=== PATIENT | male | born 1995 | race Caucasian/White ===

== ENCOUNTER 2021-05-23 14:00 | Emergency (ER) | payer SELFPAY ==
--- OUTSIDE RECORDS SUMMARY | 2021-05-23 14:08 | XMS REPORT | Continuity of Care Document ---
:1995 Author Organization [facility] t Address [address] [place] [address] Support Name Relationship Address Phone Nicolas Mother [address], [address] + [place] [address] NONE Unavailable [address]AR[address] BEE [phone],[address] [place] [address] ARTIE Unavailable [phone] [phone] [place] [address] NONE Unavailable [phone] [phone] [place] [address] NEUERBRG Unavailable [address] [place] [address] NONE Unavailable [address] [place] [address] AZEEM Unavailable [address] [phone] [place] [address] NONE Unavailable [address] [phone] [place] [address] Responsible Provider O [address] [id number] [place] [address] Legal Guardian O Unavailable Unavailable Ramin Valenzuela O [place] [address] Flash V [address] [id number] [place] [address] [place] [address] [place] [address] [id number] [place] [address] Care Team Providers Name Role Phone rjmuna Attending Clinician Unavailable Dave Attending Clinician [phone] Rachele Attending Clinician [phone] Kim Attending Clinician [phone] Elver Attending Clinician Unavailable Wilfredo BRUNO Attending Clinician Doctor Unassigned, Name Attending Clinician Unavailable Kyle MONTGOMERY Attending Clinician KYLE Attending Clinician Unavailable Reese Attending Clinician Unavailable Toshia Attending Clinician Unavailable Paul Attending Clinician [phone] Bhakti Abad Attending Clinician Unavailable Naun Krishna Attending Clinician Unavailable Manan Attending Clinician Unavailable Patricia Kerns Attending Clinician [phone] Pooja Attending Clinician Unavailable Rachele Attending Clinician Unavailable Clarita Attending Clinician Unavailable Shania Attending Clinician [phone] Zachariah Attending Clinician Unavailable Tomi Attending Clinician Unavailable Isabel Attending Clinician Unavailable Jennifer Attending Clinician Unavailable Marcus Attending Clinician [phone] Kerri Attending Clinician [phone] Sonido Attending Clinician Unavailable Avila Attending Clinician Unavailable Jaime Attending Clinician Unavailable Azeem Attending Clinician [phone] Alejandra Attending Clinician [phone] Ana Attending Clinician Unavailable Pennie Attending Clinician Unavailable Max Attending Clinician Unavailable Dhiraj Attending Clinician Unavailable Physician, Primary or Family Admitting Clinician Unavailrahul Acosta Unavailable [phone] Paul Unavailable [phone] Patricia Kerns Unavailable [phone] Bala Unavailable Unavailable Payers Payer Name Policy Type Policy Number Effective Date Expiration Date [place] Self Pay P [id number] 2018 00:00:00 Self Pay P [id number] 2018 00:00:00 2020 00:0 0:00 Problems Condition Condition Condition Status Onset Resolution Last Treating Co mments Source Name Details Category Date Date Treatment Clinician Date Acne Condition Active 2020-07-28 Paula Acosta 01-09 12:45:43 [facility] 00:00: ty 00 Health Syphilis Condition Active 2020-07-28 Antonio Acosta 06-22 12:45:43 [facility] 00:00: ty 00 Health Health Condition Active 2019-06-22 Paula Acosta care 06-22 11:09:29 [facility] maintenanc 00:00: ty e 00 Health BMI Condition Active 2019-06-22 Paula Acosta 31.0-31.9 06-22 11:09:29 Yuly Carrillo ni 00:00: ty 00 Health Hypertensi Condition Active 2020-07-28 Antonio Miller on 10-04 12:45:43 Sulema Commun i 00:00: ty 00 Health Tobacco Condition Active 2020-07-28 Hugo Kerns egacy use 09-01 12:45:43 Bengi [facility]i 00:00: Biber ty 00 Health SUBSTANCE Condition Active 2020-07-28 Luis F [facility] USE 08-16 12:45:43 [facility] DISORDER, 00:00: Biber ty OTHER/UNK, 00 Health EARLY REMISSION, SEV Cannabis Condition Active 2020-07-28 Kerns [facility] use, 08-16 12:45:43 [facility] unspecifie 00:00: Biber ty d with 00 Health unspecifie d cannabis-i nduced disorder Hypercalce Condition Active 2020-07-28 Antonio Acosta johann, 08-09 12:54:52 [facility] resolved 00:00: ty 00 Health Obesity Condition Active 2019-06-22 Paula Miller gacy 08-09 11:06:09 [facility] i 00:00: ty 00 Health Chronic Condition Active 2020-07-28 Paula Miller cough 08-09 12:45:43 [facility] Commun i 00:00: ty 00 Health Multiple Condition Active 2020-07-28 Paul, on CT L egacy pulmonary 06-30 12:45:43 Sulema scan in Co mmuni nodules 00:00: 2018 will ty 00 need Health follow-up to demonstra te resolutio n. Neurosyphi Condition Active 2020-07-28 Antonio Acosta lis 06-14 12:45:43 [facility] i 00:00: ty 00 Health HIV Condition Active 2017-062020-07-28 Paula Mckenna infection 07-31 12:45:43 Temo Commu ni 00:00: ty 00 Health No known No known Disease Unive rs active active ity of problems problems [facility] History of Past Illness Condition Condition Condition Status Onset Resolution Last Treating Co mments Source Name Details Category Date Date Treatment Clinician Date Drug Condition Inactiv 2019-06-22 2019-06-22 Antonio Acosta monitoring e 01-03 00:00:00 11:09:29 Yuly Co mmuni 00:00: ty 00 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 2018-2019-06-22 2019-06-22 Khris Acostamercedez drug e 7-24 00:00:00 11:09:29 [facility] i therapy 00:00: ty 00 Health Psychoacti Condition Inactiv 2018-2019-06-22 2019-06-22 Dave Antonio ve e 1 00:00:00 11:09:29 [facility] i substance 00:00: ty use 00 Health disorder Anxiety Condition Inactiv 2018-2019-06-22 2019-06-22 Khris Acostaacy disorder e 1 00:00:00 11:09:29 Yuly Comm uni 00:00: ty 00 Health Chest pain Condition Inactiv 2018-2019-06-22 2019-06-22 Antonio Acosta e 06-14 00:00:00 11:09:29 [facility] Commun i 00:00: ty 00 Health Lymphocyto Condition Inactiv 2018-2019-06-22 2019-06-22 Antonio Acosta sis e 06-14 00:00:00 11:09:29 [facility] Commun i 00:00: ty 00 Health Adjustment Condition Inactiv 2018-2019-06-22 2019-06-22 Khris Acostamercedez disorder e 06-14 00:00:00 11:09:29 Yuly Comm uni with 00:00: ty anxious 00 Health mood Pre-proced Condition Inactiv 2017-2019-06-22 2019-06-22 Khris Acostamercedez ural e 2-18 00:00:00 11:09:29 Y[facility] Commun i laboratory 00:00: ty examinatio 00 Health n Allergies, Adverse Reactions, Alerts Allergy Allergy Status Severity Reaction(s) Onset Inactive Treating Comm ents Source Name Type Date Date Clinician No Known DA Active U 2017-06 [facility]ergie -17 Clear s 00:00: Gillespie 00 [facility] No Known DA Active U 2017-06 [facility] Allergie -17 Clear s 00:00: Gillespie 00 [facility] NO KNOWN Drug Active Univers ALLERGIE Class ity of S [facility] Social History Social Habit Start Date Stop Date Quantity Comments Source Sex Assigned At Universit y of [facility] Exposure to Not sure University of SARS-CoV-2 (event) [facility] social history 2020-07-28 2020-07-28 reviewed today [facility] reviewed E&M 12:43:47 12:43:47 Health social history E&M 2020-07-28 2020-07-28 Dating. Raised by [facility] 12:43:47 12:43:47 grandmother. [facility] when he was 5. Born in [place]. City: [place] . State: [place]. Lived in [place] with mother.Not employed. Unemployed. Highest education level: 11th . 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 [employer] at : Male. Sexual orientation: Max. Gender identity: Male. Gender of partner(s): Male. Age of first sexual intercourse: 15. Sexually Active: Yes. sex with men mostly, females occasionally. usually top, condoms usually. has a main partner. time of call 2020-07-04 2020-07-04 07/04/2020 4:44 [facility] 16:43:47 16:43:47 PM Health albumin, serum 2020-03-20 2020-03-20 4.5 g/dL [facility] 14:04:00 14:04:00 Health drug use 2019-06-22 2019-06-22 Currently [facility] ty 10:43:59 10:43:59 Health alcohol use 2019-06-22 2019-06-22 Currently [facility] ity 10:43:59 10:43:59 Health passive cigarette 2019-06-22 2019-06-22 No [facility] smoke exposure 10:43:59 10:43:59 Health sexual orientation 2019-06-22 2019-06-22 Max [facility] 10:43:59 10:43:59 Health PHQ2 Questionairre 2019-06-22 2019-06-22 [facility] Score 10:43:59 10:43:59 Health is there any chance 2019-04-11 2019-04-11 No [facility] that you could be 16:23:08 16:23:08 Health ? alcohol use, 2018-10-04 2018-10-04 few times per [facility]munity frequency 11:03:57 11:03:57 week Health smoking, advice to 2018-09-06 2018-09-06 Yes [facility] quit 15:40:41 15:40:41 Health home/family 2018-09-06 2018-09-06 Lived in [place] [employer] situation, 15:40:41 15:40:41 with mother. Now Health assessment staying with a friend. Occupation #1 2018-07-19 2018-07-19 Unemployed [employer] 15:16:32 15:16:32 Health drug use, illicit, 2018-07-19 2018-07-19 marijuana [facility] drug of choice 15:16:32 15:16:32 Health drug use, illicit, 2018-07-19 2018-07-19 daily [facility] [employer] frequency 15:16:32 15:16:32 Health current cigarette 2018-07-19 2018-07-19 1 pack [facility] packs per day 15:16:32 15:16:32 Health family support 2018-07-19 2018-07-19 Raised by [employer] 15:16:32 15:16:32 grandmother. [facility] when he was 5. social history - 2018-06-14 2018-06-14 sex with men [facility] sexual practice 08:02:44 08:02:44 mostly, females Heal th occasionally. usually top, condoms usually. has a main partner. sex at 2018-06-14 2018-06-14 Male [employer] Commu nity 08:02:44 08:02:44 Health cigarettes, number 2018-06-14 2018-06-14 [employer] [facility] smoked per day 08:02:44 08:02:44 Health Smoking Status Start Date Stop Date Source Unknown if ever smoked [facility] Never smoked tobacco [employer] (finding) Smokes tobacco daily 2018-10-04 11:03:57 [facility] [employer] (finding) Medications Ordered Filled Start Stop Current Ordering Indication Dosage Frequency Signature Comments Components Source Medication Medication Date Date Medication? Clinician (SIG) Name Name penicillin 2020-2020- No 500mg 500 mg, Un brandon v potassium 06-17 Oral, ity of (PEN-VEE K) 22:30: 21:48 [place]CE[place] 1 [place] 500 00 :00 dose, Tue Medi kendra mg 06/17/20 at Branch 1630, GAMALIEL
Re ason for Anti-Infec tive: Documented Infection< br>Documen riccardo Infection Site: HEENT
D uration of Therapy: 7 days HYDROcodone 2020- No 1{tbl} 1 tablet, Univers -acetaminop 06-17 Oral, ONCE i ty of hen (NORCO) 22:30: 21:34 NOW, 1 David as 10-325 mg 00 :00 dose, Tue Medic al tablet 1 06/17/20 at Branch tablet 1630, GAMALIEL ketorolac 2020- No 60mg 60 mg, Unive rs (TORADOL) 06-17 Intramuscu ity of injection 22:30: 21:33 lar, ONCE, [place] 60 mg 00 :00 1 dose, Medical 06/17/20 Branch at 1630, GAMALIEL
Fa culty member approving Restricted medication : EMERGENCY ROOM, acetaminoph Yes [id number] 1{tbl} Take 1 Un brandon en-codeine -05 tablet by ity of (TYLENOL-CO 00:00: mouth [place] DEINE #3) 00 every 4 Medical 300-30 mg (four) Branch tablet hours as needed for Pain (scale 7-10). Indication s: acute pain penicillin 2020- No [id number] 500mg Take 2 Univers v potassium 06-17 tablets by i ty of 250 mg 00:00: 05:59 mouth 4 [place] tablet 00 :00 (four) Medical times Branch daily for 7 days. LORazepam 2019-06 No .5mg 0.5 mg, Univ ers (ATIVAN) 0- 10-06 Slow IV ity of injection 02:15: 01:35 Push, [place] 0.5 mg 00 :00 ONCE, 1 Medical dose, [facility] 03/17/20 at 2115, STAT ketorolac 2019-06- No 30mg 30 mg, Unive rs (TORADOL) 0-06 10-06 Slow IV ity of injection 02:15: 01:35 Push, [place] 30 mg 00 :00 ONCE, 1 Medical dose, [facility] 03/17/20 at 2115, Routine
faculty member approving Restricted medication : ALLAN WRIGHT lactated 2019-06- No 1000mL at 999 Univ ers ringers IV 0-06 10-06 mL/hr, ity of infusion 02:15: 02:35 1,000 mL, David as 1,000 mL 00 :00 Intravenou Medic al s, ONCE, 1 Branch dose, 03/17/20 at 2115, Routine ibuprofen 2019-06 Yes [id number] 800mg Take 1 Univers 800 mg 0-05 tablet by ity of tablet 00:00: mouth [place] 00 every 8 Medical (eight) Branch hours as needed for Pain (scale 4-6). cyclobenzap 2019-06 Yes [id number] 5mg Take 1 Univers rine 5 mg 0-05 tablet by ity o f tablet 00:00: mouth 2 [place] 00 (two) Medical times Branch daily. ibuprofen 2019-06 Yes [id number] 800mg Take 1 Univers 800 mg 0-05 tablet by ity of tablet 00:00: mouth [place] 00 every 8 Medical (eight) Branch hours as needed for Pain (scale 4-6). cyclobenzap 2019-06 Yes [id number] 5mg Take 1 Univers rine 5 mg 0-05 tablet by ity o f tablet 00:00: mouth 2 [place] 00 (two) Medical times Branch daily. ibuprofen 2019-06 Yes [id number] 800mg Take 1 Univers 800 mg 0-05 tablet by ity of tablet 00:00: mouth [place] 00 every 8 Medical (eight) Branch hours as needed for Pain (scale 4-6). cyclobenzap 2019-06 Yes [id number] 5mg Take 1 Univers rine 5 mg 0-05 tablet by ity o f tablet 00:00: mouth 2 [place] 00 (two) Medical times Branch daily. ACNE 2020- No Yuly Use once a [facility]ega cy FOAMING 01-09 day Communi WASH 00:00: 00:00 ty (BENZOYL 00 :00 Health PEROXIDE) 10 % LIQD (DOXYCYCLIN 2020- No Yuly 1{Capsu 2xD 1 by mouth [facility] E HYCLATE) 01-09 le} twice a Com leonardo 100 MG CAPS 00:00: 00:00 day x 7 ty 00 :00 days Health BIKTARVY Yes Yuly 1{Table 1xD TAKE ONE [facility] (BICTEGRAVI 6-17 Dave t} TABLET BY Ashli cross RRadEMTRICITA 00:00: MOUTH ty B-TENOFOV) 00 DAILY Health 50-200-25 MG TABS (HYDROCHLOR Yes Yuly 1{Capsu 1xD TAKE ONE [facility] OTHIAZIDE) 4-17 Dave wagner} CAPSULE BY Ashli ommuni 12.5 MG 00:00: MOUTH ONCE ty CAPS 00 DAILY Health DESCOVY 2019- No 1{Table 1xD 1 tab by Paula beachjana (EMTRICITAB 06-14 t} mouth Commun i INE-TENOFOV 00:00: 00:00 daily ty IR AF) 00 :00 Health 200-25 MG TABS ISENTRESS 2019- No 1{Table 2xD one tablet [facility] (RALTEGRAVI 06-14 t} by mouth Com leonardo R 00:00: 00:00 twice ty POTASSIUM) 00 :00 daily Health 400 MG TABS Immunizations Ordered Immunization Filled Immunization Date Status Commen ts Source Name Name Pneumovax 23 IM/SQ 2019-06-22 Completed [facility] [id number] 11:40:00 Health Fluzone Quadrivalent 2019-06-22 Completed [facility] IM PF 0.5 ML [facility] 11:36:00 Health [id number] pneumped1 2018-08-09 Completed [facility] ty 10:20:41 Health flu vax 2018-06-26 Completed [facility] ty 12:21:17 Health Vital Signs Vital Name Observation Time Observation Value Comments Source Systolic blood 2020-06-17 21:27:45 153 mm[Hg] [facility] Diastolic blood 2020-06-17 21:27:45 88 mm[Hg] [facility] [place] Heart rate 2020-06-17 21:27:45 80 /min [facility] Respiratory rate 2020-06-17 21:27:45 17 /min [facility] Oxygen saturation in 2020-06-17 21:27:45 100 /min [facility] Arterial blood by [facility] Pulse oximetry Branch Body temperature 2020-06-17 19:12:00 37 Stephanie [facility] Body height 2020-06-17 19:12:[address] [facility] Body weight 2020-06-17 19:12:00 68.04 kg [facility] BMI 2020-06-17 19:12:00 24.21 kg/m2 [facility] Systolic blood 2020-03-18 04:43:52 118 mm[Hg] Univer sity of pressure [facility] Diastolic blood 2020-03-18 04:43:52 76 mm[Hg] Unive rsity of pressure [facility] Heart rate 2020-03-18 04:43:52 81 /min [facility] Respiratory rate 2020-03-18 04:43:52 18 /min [facility] Oxygen saturation in 2020-03-18 04:43:52 96 /min [facility] of Arterial blood by [place] [facility] kendra Pulse oximetry Branch Body temperature 2020-03-18 02:55:00 36.67 Stephanie [facility] Body weight 2020-03-18 00:56:11 77.111 kg [facility] BMI 2020-03-18 00:56:11 26.63 kg/m2 [facility] Body height 2020-03-18 00:55:00 170.2 cm [facility] Systolic blood 2020-03-18 04:43:52 118 mm[Hg] Univer sity of pressure [facility] Diastolic blood 2020-03-18 04:43:52 76 mm[Hg] Unive rsity of pressure [facility] Heart rate 2020-03-18 04:43:52 81 /min [facility] Respiratory rate 2020-03-18 04:43:52 18 /min [facility] Oxygen saturation in 2020-03-18 04:43:52 96 /min [facility] of Arterial blood by [place] [facility] kendra Pulse oximetry Branch Body temperature 2020-03-18 02:55:00 36.67 Stephanie [facility] Body weight 2020-03-18 00:56:11 77.111 kg [facility] BMI 2020-03-18 00:56:11 26.63 kg/m2 [facility] Body height 2020-03-18 00:55:00 170.2 cm [facility] oxygen saturation, 2019-06-22 10:43:59 97 /min [facility] oximetry Health blood pressure, 2019-06-22 10:43:59 75 mm[Hg] Leg[facility] diastolic Health blood pressure, 2019-06-22 10:43:59 148 mm[Hg] Leg[facility] systolic Health respiratory rate E&M 2019-06-22 10:43:59 14 /[facility] rate 2019-06-22 10:43:59 91 /min [facility] Health temperature E&M 2019-06-22 10:43:59 98.9 [degF] [facility] weight E&M 2019-06-22 10:43:59 195 [lb_av] [facility] Health weight in kilograms 2019-06-22 10:43:59 88.64 kg L [facility] E& Health height in 2019-06-22 10:43:59 167.64 cm [facility] centimeters E&M Health temperature site 2019-06-22 10:43:59 oral [facility] Health pulse rate 2019-04-11 16:23:08 99 /min [facility] Health blood pressure, 2019-04-11 16:23:08 85 mm[Hg] Leg[facility] diastolic Health blood pressure, 2019-04-11 16:23:08 132 mm[Hg] [facility] systolic Health weight E&M 2019-04-11 16:23:08 175 [lb_av] [facility] Health weight in kilograms 2019-04-11 16:23:08 79.55 kg L [facility] E& Health oxygen saturation, 2019-04-11 16:23:08 98 /min [facility] oximetry Health temperature E&M 2019-04-11 16:23:08 98.0 [degF] Leg[facility] Health height in 2019-04-11 16:23:08 167.64 cm [facility] centimeters E&M Health oxygen saturation, 2018-10-04 11:03:57 97 /min [facility] oximetry Health blood pressure, 2018-10-04 11:03:57 82 mm[Hg] Leg[facility] diastolic Health blood pressure, 2018-10-04 11:03:57 144 mm[Hg] Leg[facility] systolic Health respiratory rate E&M 2018-10-04 11:03:57 12 /min [facility] Health pulse rate 2018-10-04 11:03:57 82 /min [facility] Health temperature E&M 2018-10-04 11:03:57 98.2 [degF] Leg[facility] Health weight E&M 2018-10-04 11:03:57 186.50 [lb_av] [facility] weight in kilograms 2018-10-04 11:03:57 84.77 kg L [facility] E& Health height in 2018-10-04 11:03:57 167.64 cm [facility] C ommunity centimeters E&M Health temperature site 2018-10-04 11:03:57 oral [facility] Health blood pressure, 2018-09-06 15:40:41 80 mm[Hg] [facility] diastolic Health blood pressure, 2018-09-06 15:40:41 155 mm[Hg] [facility] systolic Health pulse rate 2018-09-06 15:40:41 73 /min [facility] Health weight E&M 2018-09-06 15:40:41 178.60 [lb_av] [facility] weight in kilograms 2018-09-06 15:40:41 81.18 kg L [facility] E&M Health height in 2018-09-06 15:40:41 167.64 cm [facility] ommunity centimeters E&M Health height in 2018-08-16 16:00:00 167.64 cm [facility] om[facility]ity centimeters E&M Health weight E&M 2018-08-16 16:00:00 188 [lb_av] [facility] Health weight in kilograms 2018-08-16 16:00:00 85.45 kg L [facility] E& Health pulse rate 2018-08-16 16:00:00 96 /min [facility] Health blood pressure, 2018-08-16 16:00:00 78 mm[Hg] [facility] diastolic Health blood pressure, 2018-08-16 16:00:00 146 mm[Hg] [facility] systolic Health blood pressure, 2018-08-09 10:20:41 80 mm[Hg] [facility] diastolic Health blood pressure, 2018-08-09 10:20:41 132 mm[Hg] [facility] systolic Health pulse rate 2018-08-09 10:20:41 115 /min [facility] oxygen saturation, 2018-08-09 10:20:41 98 /min [facility] oximetry Health temperature E&M 2018-08-09 10:20:41 98.1 [degF] [facility] rate E&M 2018-08-09 10:20:41 13 /min [facility] Health weight E&M 2018-08-09 10:20:41 188.38 [lb_av] [facility] Health weight in kilograms 2018-08-09 10:20:41 85.63 kg L [facility] E&M Health height in 2018-08-09 10:20:41 167.64 cm [facility] blood pressure, 2018-07-19 15:16:32 88 mm[Hg] [facility] diastolic Health blood pressure, 2018-07-19 15:16:32 147 mm[Hg] [facility] systolic Health pulse rate 2018-07-19 15:16:32 68 /min [facility] Health weight E&M 2018-07-19 15:16:32 183.25 [lb_av] [facility] Health weight in kilograms 2018-07-19 15:16:32 83.30 kg L [facility] E& Health height in 2018-07-19 15:16:32 167.64 cm [facility] centimeters E&M Health blood pressure, 2018-06-26 12:21:17 72 mm[Hg] [facility] diastolic Health blood pressure, 2018-06-26 12:21:17 123 mm[Hg] Leg[facility] systolic Health oxygen saturation, 2018-06-26 12:21:17 98 /min [facility] oximetry Health temperature E&M 2018-06-26 12:21:17 98.3 [degF] [facility] Health pulse rate 2018-06-26 12:21:17 78 /min [facility] weight E&M 2018-06-26 12:21:17 173 [lb_av] [facility] weight in kilograms 2018-06-26 12:21:17 78.64 kg L [facility] E& Health height in 2018-06-26 12:21:17 167.64 cm [facility] centimeters E&M Health temperature site 2018-06-26 12:21:17 oral Lega cy [facility] Health oxygen saturation, 2018-06-14 08:02:44 95 /min Le caren [facility] oximetry Health blood pressure, 2018-06-14 08:02:44 73 mm[Hg] [facility] diastolic Health blood pressure, 2018-06-14 08:02:44 151 mm[Hg] [facility] systolic Health pulse rate 2018-06-14 08:02:44 79 /min [facility] Health temperature E&M 2018-06-14 08:02:44 99.0 [degF] [facility] height in 2018-06-14 08:02:44 167.64 cm [facility] centimeters E&M Health weight E&M 2018-06-14 08:02:44 174 [lb_av] [facility] weight in kilograms 2018-06-14 08:02:44 79.09 kg L [facility] E&M Health temperature site 2018-06-14 08:02:44 oral [facility] Procedures Procedure Date / Time Performing Clinician Source Performed Behavioral Health - 2020-07-28 12:52:06 [facility] AUTHORIZATION FOR RELEASE 2020-04-27 06:01:00 Doctor Unassigned, [facility] Branch Primary Care [facility]W Meeting 2020-04-16 16:28:37 Boubacar Phan [facility] W Other Health XR CHEST 2 VW 2020-03-18 01:37:00 Allan Wright [facility] XR SHOULDER 2+ VW LEFT 2020-03-18 01:37:00 Allan Wright [facility] CT CERVICAL SPINE WO 2020-03-18 01:20:11 Allan Wright [facility] CONTRAST [facility] CT HEAD WO CONTRAST 2020-03-18 01:20:11 Allan Wright [facility] HEPATIC FUNCTION PANEL 2020-03-18 01:17:00 Allan Wright [facility] ([id number]) (ALB,T.PRO,BILI Medical Branch T,BU/BC,ALT,AST,ALK PHOS) BASIC METABOLIC PANEL 2020-03-18 01:17:00 Kyle [facility] (NA, K, CL, CO2, GLUCOSE, Medica l Branch BUN, CREATININE, CA) CBC WITH DIFF 2020-03-18 01:17:00 Kyle [facility] EXTRA TUBE LT. BLUE 2020-03-18 01:17:00 Allan Wright [facility] Addl Vx - Ix admin via ID 2019-06-22 11:36:37 Yuly Acosta [facility] IM or jet injects without Health counseling by physician Pneumovax 23 Injection 2019-06-22 11:36:37 Yuly Acosta [facility] Injectable 25 MCG/0.5ML Health First Vx - Ix admin via 2019-06-22 11:36:37 Yuly Acosta [facility] ID IM or jet injects Health without counseling by physician Fluzone Quadrivalent IM 2019-06-22 11:34:08 Yuly Acosta [facility] Prefilled Syringe 0.5 mL Health (PF) Vaccines Ordered - Print 2019-06-22 11:03:56 Yuly Acosta [facility] Consent/Declination Forms Health Primary Care SLW Meeting 2019-04-12 17:12:15 Boubacar Phan [facility] Other Health Primary Care Service 2019-04-12 17:11:53 Boubacar Phan [facility] Linkage Health Primary Care SLW Meeting 2019-04-12 17:00:10 Boubacar Phan [facility] Other Health Prescription Assistance 2019-04-11 16:47:51 Sulema Miller [facility] (HIV - URGENT) Health Vaccines Ordered - Print 2019-04-11 16:41:07 Sulema Miller [facility] Consent/Declination Forms Health Primary Care SLW Meeting 2019-03-15 15:29:48 Abiel Mahan [facility] Other CM Health Primary Care Medical Case 2019-03-15 08:37:22 Radha Ovalle [facility] Management Health Primary Care Medical Case 2019-02-20 17:03:33 Radha Ovalle [facility] Health Outreach - Face to Face 2018-11-29 11:18:08 Demi Longorianaun [facility] Primary Care [facility]W Meeting 2018-11-28 12:26:29 Abiel Mahan Leg messiy [facility] W Other Health Primary Care Service 2018-11-28 12:26:29 Abiel Mahan Legmercedez [facility] Health Primary Care Medical Case 2018-11-20 10:13:04 Nighat Cartwright [facility] Primary Care SLW Meeting 2018-11-17 13:19:12 Abiel Mahan Leg messiy [facility] W Other Health Outreach - Phone contact 2018-10-23 11:30:02 Vanessa Santana mercedez [facility] with (or on behalf of) Health Client Primary Care SLW Meeting 2018-10-19 15:38:59 Abiel Mahan Leg messiy [facility] W Other Health Primary Care Service 2018-10-19 15:38:59 Mahan, Abiel Legmercedez [facility] Health Primary Care Service 2018-10-16 15:50:57 Mahan, Abiel Legmercedez [facility] Health Primary Care SLW Meeting 2018-10-13 14:51:08 Abiel Mahan Leg messiy [facility] W Other Health Primary Care Service 2018-10-13 12:00:57 Mahan, Abiel Legmercedez [facility] Health Primary Care Service 2018-10-06 12:45:23 MahanAbiel caldwell Legmercedez [facility] Health Prescription Assistance 2018-10-04 11:33:51 Sulema Millernaun [facility] (HIV - URGENT) Health Primary Care Service 2018-09-19 14:55:15 Mahan, Abiel Legmercedez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 normal in height and in normal alignment. Reversalof the normal cervical lordosis is noted. No facet fracture or subluxationis present. The craniocervical junction is intact. The prevertebral softtissues are unremarkable.IMPRESSIONNo acute intracranial abnormalityNo cervical fracture or traumatic malalignmentUnSt. [facility] with Nemydwsssyxr0557-22-25 01:22:00 Test Item Value Reference Range Interpretation Comments WBC (test code = See_Comment [Automated 9590-2) message] The sy stem which generated this result transmitted reference range : 4.20 - 10.70 10*3/?L. The reference range was not used to interpret this result as normal/abnormal . RBC (test code = See_Comment H [Automated 139-8) message] The sy stem which generated this result transmitted reference range : 4.26 - 5.52 10*6/?L. The reference range was not used to interpret this result as normal/abnormal . HGB (test code = 16.0 g/dL 12.2-16.4 718-7) HCT (test code = 45.2 % 38.4-49.3 4544-3) MCV (test code = 81.4 fL 81.7-95.6 L 787-2) MCH (test code = 28.8 pg 26.1-32.7 785-6) MCHC (test code = 35.4 g/dL 31.2-35 H 786-4) RDW-SD (test code = 38.3 fL 38.5-51.6 L 80513-3) RDW-CV (test code = 13.0 % 12.1-15.4 788-0) PLT (test code = See_Comment [Automated 777-3) message] The sy stem which generated this result transmitted reference range : 150 - 328 10*3/ ?L. The reference r yris was not used to interpret this result as normal/abnormal . MPV (test code = 8.5 fL 9.8-13 L 76685-3) NRBC/100 WBC (test See_Comment [Automat ed code = 5041240363) message] The system which generated this result transmitted reference range : 0.0 - 10.0 /100 WBCs. The refer ence range was not u sed to interpret th is result as normal/abnormal . NRBC x10^3 (test code <0.01 See_Comment [Auto mated = [id number]) message] The s ystem which generated this result transmitted reference range : 10*3/?L. The reference range was not used to interpret this result as normal/abnormal . GRAN MAT (NEUT) % 53.6 % (test code = 770-8) IMM GRAN % (test code 0.20 % = 0908434089) LYMPH % (test code = 36.5 % 736-9) MONO % (test code = 8.6 % 5905-5) EOS % (test code = 0.7 % 713-8) BASO % (test code = 0.4 % 706-2) GRAN MAT x10^3(ANC) 4.50 10*3/uL 1.99-6.95 (test code = 3782216715) IMM GRAN x10^3 (test <0.03 0-0.06 code = 9300901030) LYMPH x10^3 (test code 3.06 10*3/uL 1.09-3.23 = 731-0) MONO x10^3 (test code 0.72 10*3/uL 0.36-1.02 = 742-7) EOS x10^3 (test code = 0.06 10*3/uL 0.06-0.53 711-2) BASO x10^3 (test code 0.03 10*3/uL 0.01-0.09 = 704-7) Lab Interpretation Abnormal (test code = 07280-1) [facility] Centerhepatitis C antibody, [id number] 10:40:00 Test Item Value Reference Range Interpretation Comments hepatitis C antibody, 0.1 (unknown unit) 0.0-0.9 serum (test code = 5199-5) [facility] PointTreponema pallidum antibodies, by particle agglutination 2019-10-29 10:40:00 Test Item Value Reference Range Interpretation Comments Treponema pallidum antibodies, by Reactive Non Reactive A particle agglutination (test code = 67235-9) [facility] Pointrad plasma reagin antibody, [id number] 10:40:00 Test Item Value Reference Range Interpretation Comments rapid plasma reagin 1:1 See_Comment H [Automa riccardo message] The antibody, serum (test system which generated code = 5291-0) this result t ransmitted reference range : NonRea<1:1. The reference range was not u sed to interpret this result as normal/abnormal . [facility] PointNeisseria gonorrhoeae DNA [id number] 10:40:00 Test Item Value Reference Range Interpretation Comments Neisseria gonorrhoeae DNA probe Negative Negative (test code = 39515-8) [facility] Pointchlamydia DNA [id number] 10:40:00 Test Item Value Reference Range Interpretation Comments chlamydia DNA probe (test code = Negative Negative 62064-8) [facility] Pointalanine aminotransferase (SGPT), [id number] 10:40:00 Test Item Value Reference Range Interpretation Comments alanine aminotransferase (SGPT), serum 11 1/L 0-44 (test code = 1742-6) [facility] Pointaspartate aminotransferase (SGOT), [id number] 10:40:00 Test Item Value Reference Range Interpretation Comments aspartate aminotransferase (SGOT), 15 1/L 0-40 serum (test code = 1920-8) [facility] Pointalkaline phosphatase, [id number] 10:40:00 Test Item Value Reference Range Interpretation Comments alkaline phosphatase, serum (test code 70 1/L 39-117 = 1783-0) [facility] Pointbilirubin, serum, [id number] 10:40:00 Test Item Value Reference Range Interpretation Comments bilirubin, serum, total (test code 0.3 mg/dL 0.0-1.2 = 1975-2) [facility] Pointalbumin/globulin ratio, [id number] 10:40:00 Test Item Value Reference Range Interpretation Comments albumin/globulin ratio, 1.9 (unknown unit) 1.2-2.2 serum (test code = 1759-0) [facility] Pointglobulin, [id number] 10:40:00 Test Item Value Reference Range Interpretation Comments globulin, serum (test code 2.5 (unknown unit) 1.5-4.5 = 2336-6) [facility] Pointalbumin, [id number] 10:40:00 Test Item Value Reference Range Interpretation Comments albumin, serum (test code = 1751-7) 4.7 g/dL 4.1-5.2 [facility] Health[facility], total, [id number] 10:40:00 Test Item Value Reference Range Interpretation Comments protein, total, serum (test code = 7.2 g/dL 6.0-8.5 2885-2) [facility] Pointcalcium, [id number] 10:40:00 Test Item Value Reference Range Interpretation Comments calcium, serum (test code = 1999-) 9.8 mg/dL 8.7-10.2 [facility] Pointcarbon dioxide, venous [id number] 10:40:00 Test Item Value Reference Range Interpretation Comments carbon dioxide, venous blood (test 23 mmol/L code = 2027-1) [facility] Pointchloride, [id number] 10:40:00 Test Item Value Reference Range Interpretation Comments chloride, serum (test code = 105 mmol/L 96-106 5-0) [facility] Pointpotassium, [id number] 10:40:00 Test Item Value Reference Range Interpretation Comments potassium, serum (test code = 4.1 mmol/L 3.5-5.2 2823-3) [facility] Pointsodium, [id number] 10:40:00 Test Item Value Reference Range Interpretation Comments sodium, serum (test code = 2951-2) 141 mmol/L 134-144 [facility] Pointurea nitrogen/creatinine ratio, [id number] 10:40:00 Test Item Value Reference Range Interpretation Comments urea nitrogen/creatinine 8 (unknown unit) 9-20 L ratio, serum (test code = 3097-3) [facility] HealtheGFR if [id number] 10:40:00 Test Item Value Reference Range Interpretation Comments eGFR if 124 mL/min/{1.73 m2} >59 (test code = 61570-1) [facility] PointEstimated Glomerular Filtration Rate (calc)2019-10-29 10:40:00 Test Item Value Reference Range Interpretation Comments Estimated Glomerular 108 mL/min/{1.73 m2} >59 Filtration Rate (calc) (test code = 90249-4) [facility] Pointcreatinine, [id number] 10:40:00 Test Item Value Reference Range Interpretation Comments creatinine, serum (test code = 0.99 mg/dL 0.76-1.27 2160-0) [facility] Healthurea nitrogen, [id number] 10:40:00 Test Item Value Reference Range Interpretation Comments urea nitrogen, blood (test code = 8 mg/dL 6-20 3094-0) [facility] Pointblood glucose, [id number] 10:40:00 Test Item Value Reference Range Interpretation Comments blood glucose, random (test code = 99 mg/dL 65-99 2339-0) [facility] Pointimmature granulocytes, percentage of total cells, blood 2019-10-29 10:40:00 Test Item Value Reference Range Interpretation Comments immature granulocytes, percentage of 0 % total cells, blood (test code = 97387-3) [facility] Pointbasophil count, [id number] 10:40:00 Test Item Value Reference Range Interpretation Comments basophil count, absolute (test 0.0 x10E3/uL 0.0-0.2 code = 29093-5) [facility] PointEosinophil Absolute [id number] 10:40:00 Test Item Value Reference Range Interpretation Comments Eosinophil Absolute Count (test 0.1 X10E3/UL 0.0-0.4 code = 21033-1) [facility] Pointmonocyte count, blood, [id number] 10:40:00 Test Item Value Reference Range Interpretation Comments monocyte count, blood, automated 0.5 X10E3/UL 0.1-0.9 (test code = 742-7) [facility] Pointlymphocyte count, blood, [id number] 10:40:00 Test Item Value Reference Range Interpretation Comments lymphocyte count, blood, 2.0 X10E3/UL 0.7-3.1 automated (test code = 731-0) [facility] PointAbsolute [id number] 10:40:00 Test Item Value Reference Range Interpretation Comments Absolute Neutrophils (test code 3.8 X10E3/UL 1.4-7.0 = 64903-0) [facility] Pointbasophils as percent of blood [id number] 10:40:00 Test Item Value Reference Range Interpretation Comments basophils as percent of blood 0 % leukocytes (test code = 707-0) [facility] Pointeosinophils as percent of blood yqvwudguwb9636-03-02 10:40:00 Test Item Value Reference Range Interpretation Comments eosinophils as percent of blood 1 % leukocytes (test code = 713-8) [facility] Healthmonocytes as percent of blood [id number] 10:40:00 Test Item Value Reference Range Interpretation Comments monocytes as percent of blood 7 % leukocytes (test code = 5905-5) [facility] Pointlymphocytes as percent of blood [id number] 10:40:00 Test Item Value Reference Range Interpretation Comments lymphocytes as percent of blood 31 % leukocytes (test code = 736-9) [facility] Pointneutrophils as percent of blood gjaoynzqsv6422-00-49 10:40:00 Test Item Value Reference Range Interpretation Comments neutrophils as percent of blood 61 % leukocytes (test code = 770-8) [facility] Pointplatelet [id number] 10:40:00 Test Item Value Reference Range Interpretation Comments platelet count (test code = 269 X10E3/UL 150-450 777-3) [facility] Pointred blood cell distribution [id number] 10:40:00 Test Item Value Reference Range Interpretation Comments red blood cell distribution width 14.0 % 11.6-15.4 (test code = 788-0) [facility] corpuscular hemoglobin concentration, [id number] 10:40:00 Test Item Value Reference Range Interpretation Comments mean corpuscular hemoglobin 33.5 G/DL 31.5-35.7 concentration, RBC (test code = 786-4) [facility] corpuscular hemoglobin, [id number] 10:40:00 Test Item Value Reference Range Interpretation Comments mean corpuscular hemoglobin, RBC 29.0 pg 26.6-33.0 (test code = 785-6) [facility] corpuscular volume, [id number] 10:40:00 Test Item Value Reference Range Interpretation Comments mean corpuscular volume, RBC (test code 87 fL 79-97 = 787-2) [facility] Pointhematocrit, [id number] 10:40:00 Test Item Value Reference Range Interpretation Comments hematocrit, blood (test code = 4544-3) 44.8 % 37.5-51.0 [facility] Pointhemoglobin, [id number] 10:40:00 Test Item Value Reference Range Interpretation Comments hemoglobin, blood (test code = 15.0 g/dL 13.0-17.7 718-7) [facility] Pointerythrocyte (RBC) [id number] 10:40:00 Test Item Value Reference Range Interpretation Comments erythrocyte (RBC) count (test 5.18 X10E6/UL 4.14-5.80 code = 789-8) [facility] Pointleukocyte count, [id number] 10:40:00 Test Item Value Reference Range Interpretation Comments leukocyte count, blood (test 6.3 X10E3/UL 3.4-10.8 code = 6690-2) [facility] PointT-helper cells (CD4) as percent of blood lymphocytes 2019-10-29 10:40:00 Test Item Value Reference Range Interpretation Comments T-helper cells (CD4) as percent of 26.9 % 30.8-58.5 L blood lymphocytes (test code = 8123-2) [facility] PointT-helper cells (CD4) [id number] 10:40:00 Test Item Value Reference Range Interpretation Comments T-helper cells (CD4) count (test code 538 /UL 359-1519 = 05063-8) [facility] Pointhepatitis B surface [id number] 10:40:00 Test Item Value Reference Range Interpretation Comments hepatitis B surface antigen (test Negative Negative code = 79) [facility] PointHIV-1RNA, serum, by PCR, [id number] 10:40:00 Test Item Value Reference Range Interpretation Comments HIV-1RNA, serum, by PCR, <20 copies/mL quantitative (test code = 96995) [facility] PointCD4/CD8 [id number] 10:40:00 Test Item Value Reference Range Interpretation Comments CD4/CD8 ratio (test code 0.50 (unknown unit) 0.92-3.72 L = 86879) [facility] PointT-suppressor cells (CD8) as percent of blood lymphocytes 2019-10-29 10:40:00 Test Item Value Reference Range Interpretation Comments T-suppressor cells (CD8) as percent of 53.5 % 12.0-35.5 H blood lymphocytes (test code = 3517) [facility] Pointabsolute [id number] 10:40:00 Test Item Value Reference Range Interpretation Comments absolute CD8 (test code = 1070 (unknown unit) 109-897 H 26133) [facility] PointCHLAMYDIA GC DNA BY [id number] 12:08:00 Test Item Value Reference Range Interpretation Comments C. TRACHOMATIS DNA BY Negative Negative PCR (test code = CHLAMTDNA) N. GONORRHOEAE DNA BY Negative Negative Perfor med At: ST PCR (test code = [facility] NGONORDNA) [id number] [facility], [place] [id number] celio Davalos MD Ph:[phone] RAPID PLASMA [id number] 11:33:00 Test Item Value Reference Range Interpretation Comments RAPID PLASMA REAGIN (test code = NONREACTIVE NONREACTIVE RPR) UA RFLX MICR CULT IF [id number] 12:05:00 Test Item Value Reference Range Interpretation Comments UA COLOR (test code = COLU) JOAN YEL/STRAW A UA APPEARANCE (test code = CLEAR CLEAR APPU) UA GLUCOSE DIPSTICK (test code NEGATIVE NEGATIVE = DGLUU) UA BILIRUBIN DIPSTICK (test NEGATIVE NEGATIVE code = BILU) UA KETONE DIPSTICK (test code NEGATIVE NEGATIVE = KETU) UA SPECIFIC GRAVITY (test code 1.026 1.005-1.030 N = SGU) UA BLOOD DIPSTICK (test code = 1+ NEGATIVE A VALENCIA) UA PH DIPSTICK (test code = 5.0 5.0-7.0 N DORIS) UA PROTEIN DIPSTICK (test code NEGATIVE NEGATIVE = PROU) UA UROBILINIOGEN DIPSTICK 0.2 mg/dL 0.2-1.0 (test code = URO) UA NITRITE DIPSTICK (test code NEGATIVE NEGATIVE = SARAH) UA LEUKOCYTE ESTERASE DIPSTICK NEGATIVE NEGATIVE (test code = LEUU) UA WBC (test code = WBCU) 0-3 WBC/HPF 0-3 UA RBC (test code = RBCU) 0-3 RBC/HPF 0-3 UA WBC NO REFLEX (test code = 0-3 WBC/HPF 0-3 WBCUCL) UA BACTERIA (test code = BACU) NONE SEEN /HPF NONE SEEN UA SQUAMOUS CELLS (test code = 0-5 /HPF NONE SEEN SQU) UA MUCUS (test code = MUCU) 2+ /LPF NONE SEEN A Indication for culture: Dysuria/FrequencySpecimen Description: CLEAN CATCH Neisseria gonorrhoeae DNA [id number] 14:24:00 Test Item Value Reference Range Interpretation Comments Neisseria gonorrhoeae DNA probe Negative Negative (test code = 00812-8) [facility] Pointchlamydia DNA [id number] 14:24:00 Test Item Value Reference Range Interpretation Comments chlamydia DNA probe (test code = Negative Negative 68819-4) [facility] PointTreponema pallidum antibodies, by particle agglutination 2019-05-30 14:08:00 Test Item Value Reference Range Interpretation Comments Treponema pallidum antibodies, by Reactive Non Reactive A particle agglutination (test code = 27820-4) [facility] PointT-helper cells (CD4) as percent of blood lymphocytes 2019-05-30 14:08:00 Test Item Value Reference Range Interpretation Comments T-helper cells (CD4) as percent of 28.9 % 30.8-58.5 L blood lymphocytes (test code = 8123-2) [facility] PointT-helper cells (CD4) [id number] 14:08:00 Test Item Value Reference Range Interpretation Comments T-helper cells (CD4) count (test code 520 /UL 359-1519 = 64648-9) [facility] Pointrapid plasma reagin antibody, [id number] 14:08:00 Test Item Value Reference Range Interpretation Comments rapid plasma reagin 1:2 See_Comment H [Automa riccardo message] The antibody, serum (test system which generated code = 5291-0) this result t ransmitted reference range : NonRea<1:1. The reference range was not u sed to interpret this result as normal/abnormal . [facility] Pointalanine aminotransferase (SGPT), [id number] 14:08:00 Test Item Value Reference Range Interpretation Comments alanine aminotransferase (SGPT), serum 13 1/L 0-44 (test code = 1742-6) [facility] Pointaspartate aminotransferase (SGOT), [id number] 14:08:00 Test Item Value Reference Range Interpretation Comments aspartate aminotransferase (SGOT), 17 1/L 0-40 serum (test code = 1920-8) [facility] Healthalkaline phosphatase, [id number] 14:08:00 Test Item Value Reference Range Interpretation Comments alkaline phosphatase, serum (test code 81 1/L 39-117 = 1783-0) [facility] Healthbilirubin, serum, [id number] 14:08:00 Test Item Value Reference Range Interpretation Comments bilirubin, serum, total (test code 0.6 mg/dL 0.0-1.2 = 1975-2) [facility] Healthalbumin/globulin ratio, [id number] 14:08:00 Test Item Value Reference Range Interpretation Comments albumin/globulin ratio, 1.6 (unknown unit) 1.2-2.2 serum (test code = 1759-0) [facility] Healthglobulin, [id number] 14:08:00 Test Item Value Reference Range Interpretation Comments globulin, serum (test code 3.2 (unknown unit) 1.5-4.5 = 2336-6) [facility] Healthalbumin, [id number] 14:08:00 Test Item Value Reference Range Interpretation Comments albumin, serum (test code = 1751-7) 5.1 g/dL 3.5-5.5 [facility] total, [id number] 14:08:00 Test Item Value Reference Range Interpretation Comments protein, total, serum (test code = 8.3 g/dL 6.0-8.5 2885-2) [facility] Healthcalcium, [id number] 14:08:00 Test Item Value Reference Range Interpretation Comments calcium, serum (test code = 10.1 mg/dL 8.7-10.2 1999-8) [facility] dioxide, venous omdsm5686-73-58 14:08:00 Test Item Value Reference Range Interpretation Comments carbon dioxide, venous blood (test 24 mmol/L - code = 2026-1) [facility] Pointchloride, [id number] 14:08:00 Test Item Value Reference Range Interpretation Comments chloride, serum (test code = 97 mmol/L 96-106 2074-0) [facility]potassium, lkjnd5177-20-68 14:08:00 Test Item Value Reference Range Interpretation Comments potassium, serum (test code = 4.2 mmol/L 3.5-5.2 2823-3) [facility] Pointsodium, [id number] 14:08:00 Test Item Value Reference Range Interpretation Comments sodium, serum (test code = 2951-2) 140 mmol/L 134-144 [facility] Pointurea nitrogen/creatinine ratio, [id number] 14:08:00 Test Item Value Reference Range Interpretation Comments urea nitrogen/creatinine 10 (unknown unit) 9-20 ratio, serum (test code = 3097-3) [facility] HealtheGFR if Fwqygdxi4402-48-74 14:08:00 Test Item Value Reference Range Interpretation Comments eGFR if 140 mL/min/{1.73 m2} >59 (test code = 67143-8) [facility] PointEstimated Glomerular Filtration Rate (calc)2019-05-30 14:08:00 Test Item Value Reference Range Interpretation Comments Estimated Glomerular 121 mL/min/{1.73 m2} >59 Filtration Rate (calc) (test code = 36218-5) [facility] Pointcreatinine, [id number] 14:08:00 Test Item Value Reference Range Interpretation Comments creatinine, serum (test code = 0.89 mg/dL 0.76-1.27 2160-0) [facility] Pointurea nitrogen, [id number] 14:08:00 Test Item Value Reference Range Interpretation Comments urea nitrogen, blood (test code = 9 mg/dL 6-20 3094-0) [facility] Pointblood glucose, xgaqhw5545-00-32 14:08:00 Test Item Value Reference Range Interpretation Comments blood glucose, random (test code = 86 mg/dL 65-99 2339-0) [facility] Pointimmature granulocytes, percentage of total cells, blood 2019-05-30 14:08:00 Test Item Value Reference Range Interpretation Comments immature granulocytes, percentage of 0 % total cells, blood (test code = 86653-0) [facility] Pointbasophil count, fwakggfc6014-05-91 14:08:00 Test Item Value Reference Range Interpretation Comments basophil count, absolute (test 0.0 x10E3/uL 0.0-0.2 code = 56210-1) [facility] HealthEosinophil Absolute Wfymu1485-36-88 14:08:00 Test Item Value Reference Range Interpretation Comments Eosinophil Absolute Count (test 0.1 X10E3/UL 0.0-0.4 code = 35211-2) [facility] Healthmonocyte count, blood, acbighwra9798-89-45 14:08:00 Test Item Value Reference Range Interpretation Comments monocyte count, blood, automated 0.5 X10E3/UL 0.1-0.9 (test code = 742-7) [facility] Healthlymphocyte count, blood, shfcxjzaf9208-75-52 14:08:00 Test Item Value Reference Range Interpretation Comments lymphocyte count, blood, 1.8 X10E3/UL 0.7-3.1 automated (test code = 731-0) [facility] HealthAbsolute Hpvflzhpwja6354-64-01 14:08:00 Test Item Value Reference Range Interpretation Comments Absolute Neutrophils (test code 3.6 X10E3/UL 1.4-7.0 = 07671-3) [facility] Healthbasophils as percent of blood gzhpflrvjs2328-63-05 14:08:00 Test Item Value Reference Range Interpretation Comments basophils as percent of blood 0 % leukocytes (test code = 707-0) [facility] Healtheosinophils as percent of blood xoxrklnqqx4673-63-12 14:08:00 Test Item Value Reference Range Interpretation Comments eosinophils as percent of blood 1 % leukocytes (test code = 713-8) [facility] Healthmonocytes as percent of blood cnvkeynlgs7723-88-01 14:08:00 Test Item Value Reference Range Interpretation Comments monocytes as percent of blood 8 % leukocytes (test code = 5905-5) [facility] Healthlymphocytes as percent of blood tutiktxsgz8203-26-10 14:08:00 Test Item Value Reference Range Interpretation Comments lymphocytes as percent of blood 31 % leukocytes (test code = 736-9) [facility] Healthneutrophils as percent of blood eljuznppim2323-79-53 14:08:00 Test Item Value Reference Range Interpretation Comments neutrophils as percent of blood 60 % leukocytes (test code = 770-8) [facility] Healthplatelet [id number] 14:08:00 Test Item Value Reference Range Interpretation Comments platelet count (test code = 254 X10E3/UL 150-450 777-3) [facility] Pointred blood cell distribution jzzdj2415-43-36 14:08:00 Test Item Value Reference Range Interpretation Comments red blood cell distribution width 13.8 % 12.3-15.4 (test code = 788-0) [facility] corpuscular hemoglobin concentration, [id number] 14:08:00 Test Item Value Reference Range Interpretation Comments mean corpuscular hemoglobin 33.1 G/DL 31.5-35.7 concentration, RBC (test code = 786-4) [facility] corpuscular hemoglobin, [id number] 14:08:00 Test Item Value Reference Range Interpretation Comments mean corpuscular hemoglobin, RBC 27.8 pg 26.6-33.0 (test code = 785-6) [facility] corpuscular volume, [id number] 14:08:00 Test Item Value Reference Range Interpretation Comments mean corpuscular volume, RBC (test code 84 fL 79-97 = 787-2) [facility] Pointhematocrit, [id number] 14:08:00 Test Item Value Reference Range Interpretation Comments hematocrit, blood (test code = 4544-3) 48.4 % 37.5-51.0 [facility] Pointhemoglobin, [id number] 14:08:00 Test Item Value Reference Range Interpretation Comments hemoglobin, blood (test code = 16.0 g/dL 13.0-17.7 718-7) [facility] Pointerythrocyte (RBC) wdjjp6564-28-12 14:08:00 Test Item Value Reference Range Interpretation Comments erythrocyte (RBC) count (test 5.76 X10E6/UL 4.14-5.80 code = 789-8) [facility] Pointleukocyte count, [id number] 14:08:00 Test Item Value Reference Range Interpretation Comments leukocyte count, blood (test 6.0 X10E3/UL 3.4-10.8 code = 6690-2) [facility] PointHIV-1RNA, serum, by PCR, utxrsqqtfbyq8033-92-10 14:08:00 Test Item Value Reference Range Interpretation Comments HIV-1RNA, serum, by PCR, <20 copies/mL quantitative (test code = 47204) [facility] PointCD4/CD8 [id number] 14:08:00 Test Item Value Reference Range Interpretation Comments CD4/CD8 ratio (test code 0.57 (unknown unit) 0.92-3.72 L = 69845) [facility] PointT-suppressor cells (CD8) as percent of blood lymphocytes 2019-05-30 14:08:00 Test Item Value Reference Range Interpretation Comments T-suppressor cells (CD8) as percent of 51.0 % 12.0-35.5 H blood lymphocytes (test code = 3517) [facility] Pointabsolute [id number] 14:08:00 Test Item Value Reference Range Interpretation Comments absolute CD8 (test code = 918 (unknown unit) 109-897 H 33919) [facility] PointTreponema pallidum antibodies, by particle agglutination 2019-02-19 12:17:00 Test Item Value Reference Range Interpretation Comments Treponema pallidum antibodies, by Positive Negative A particle agglutination (test code = 19978-0) [facility] PointT-helper cells (CD4) as percent of blood lymphocytes 2019-02-19 12:17:00 Test Item Value Reference Range Interpretation Comments T-helper cells (CD4) as percent of 21.9 % 30.8-58.5 L blood lymphocytes (test code = 8123-2) [facility] PointT-helper cells (CD4) [id number] 12:17:00 Test Item Value Reference Range Interpretation Comments T-helper cells (CD4) count (test code 329 /UL 359-1519 L = 20656-8) [facility] Pointrapid plasma reagin antibody, jcqce6273-21-22 12:17:00 Test Item Value Reference Range Interpretation Comments rapid plasma reagin 1:2 See_Comment H [Automa riccardo message] The antibody, serum (test system which generated code = 5291-0) this result t ransmitted reference range : NonRea<1:1. The reference range was not u sed to interpret this result as normal/abnormal . [facility] Pointalanine aminotransferase (SGPT), sluoj4596-79-00 12:17:00 Test Item Value Reference Range Interpretation Comments alanine aminotransferase (SGPT), serum 14 1/L 0-44 (test code = 1742-6) [facility] Healthaspartate aminotransferase (SGOT), yqzum8867-40-73 12:17:00 Test Item Value Reference Range Interpretation Comments aspartate aminotransferase (SGOT), 17 1/L 0-40 serum (test code = 1920-8) [facility] Pointalkaline phosphatase, pjtqa9381-09-93 12:17:00 Test Item Value Reference Range Interpretation Comments alkaline phosphatase, serum (test code 69 1/L 39-117 = 1783-0) [facility] Pointbilirubin, serum, [id number] 12:17:00 Test Item Value Reference Range Interpretation Comments bilirubin, serum, total (test code 0.5 mg/dL 0.0-1.2 = 1975-2) [facility] Healthalbumin/globulin ratio, vafug9489-89-04 12:17:00 Test Item Value Reference Range Interpretation Comments albumin/globulin ratio, 1.8 (unknown unit) 1.2-2.2 serum (test code = 1759-0) [facility] Healthglobulin, [id number] 12:17:00 Test Item Value Reference Range Interpretation Comments globulin, serum (test code 2.7 (unknown unit) 1.5-4.5 = 2336-6) [facility] Healthalbumin, lyxqb5330-07-03 12:17:00 Test Item Value Reference Range Interpretation Comments albumin, serum (test code = 1751-7) 4.8 g/dL 3.5-5.5 [facility] Pointprotein, total, [id number] 12:17:00 Test Item Value Reference Range Interpretation Comments protein, total, serum (test code = 7.5 g/dL 6.0-8.5 2885-2) [facility] Pointcalcium, [id number] 12:17:00 Test Item Value Reference Range Interpretation Comments calcium, serum (test code = 10.1 mg/dL 8.7-10.2 1999-8) [facility] Pointcarbon dioxide, venous mects7153-26-25 12:17:00 Test Item Value Reference Range Interpretation Comments carbon dioxide, venous blood (test 27 mmol/L 20-29 code = 7-1) [facility] Pointchloride, wmpzt9007-79-87 12:17:00 Test Item Value Reference Range Interpretation Comments chloride, serum (test code = 99 mmol/L 96-106 2075-0) [facility] Healthpotassium, hidbn0955-25-18 12:17:00 Test Item Value Reference Range Interpretation Comments potassium, serum (test code = 4.3 mmol/L 3.5-5.2 2823-3) [facility] Pointsodium, ifxlo6480-96-95 12:17:00 Test Item Value Reference Range Interpretation Comments sodium, serum (test code = 2951-2) 139 mmol/L 134-144 [facility] Pointurea nitrogen/creatinine ratio, gdxnk0206-76-06 12:17:00 Test Item Value Reference Range Interpretation Comments urea nitrogen/creatinine 8 (unknown unit) 9-20 L ratio, serum (test code = 3097-3) [facility] HealtheGFR if Uirtbyci5970-55-22 12:17:00 Test Item Value Reference Range Interpretation Comments eGFR if 144 mL/min/{1.73 m2} >59 (test code = 89478-6) [facility] PointEstimated Glomerular Filtration Rate (calc)2019-02-19 12:17:00 Test Item Value Reference Range Interpretation Comments Estimated Glomerular 125 mL/min/{1.73 m2} >59 Filtration Rate (calc) (test code = 23580-8) [facility] Pointcreatinine, kftnj1776-64-80 12:17:00 Test Item Value Reference Range Interpretation Comments creatinine, serum (test code = 0.85 mg/dL 0.76-1.27 2160-0) [facility] Pointurea nitrogen, [id number] 12:17:00 Test Item Value Reference Range Interpretation Comments urea nitrogen, blood (test code = 7 mg/dL 6-20 3094-0) [facility] Pointblood glucose, [id number] 12:17:00 Test Item Value Reference Range Interpretation Comments blood glucose, random (test code = 103 mg/dL 65-99 H 2339-0) [facility] Pointimmature granulocytes, percentage of total cells, blood 2019-02-19 12:17:00 Test Item Value Reference Range Interpretation Comments immature granulocytes, percentage of 0 % total cells, blood (test code = 35550-5) [facility] Pointbasophil count, dsglesar4851-40-33 12:17:00 Test Item Value Reference Range Interpretation Comments basophil count, absolute (test 0.0 x10E3/uL 0.0-0.2 code = 93646-6) [facility] HealthEosinophil Absolute [id number] 12:17:00 Test Item Value Reference Range Interpretation Comments Eosinophil Absolute Count (test 0.0 X10E3/UL 0.0-0.4 code = 93726-7) [facility] Healthmonocyte count, blood, uqqapipwn9478-77-24 12:17:00 Test Item Value Reference Range Interpretation Comments monocyte count, blood, automated 0.4 X10E3/UL 0.1-0.9 (test code = 742-7) [facility] Pointlymphocyte count, blood, donxwhixc7593-14-44 12:17:00 Test Item Value Reference Range Interpretation Comments lymphocyte count, blood, 1.5 X10E3/UL 0.7-3.1 automated (test code = 731-0) [facility] PointAbsolute Atidafwwcja7944-22-60 12:17:00 Test Item Value Reference Range Interpretation Comments Absolute Neutrophils (test code 3.3 X10E3/UL 1.4-7.0 = 79055-7) [facility] Healthbasophils as percent of blood zerhlzutuj3000-55-81 12:17:00 Test Item Value Reference Range Interpretation Comments basophils as percent of blood 0 % leukocytes (test code = 707-0) [facility] Healtheosinophils as percent of blood xgxjnqiedb4497-43-83 12:17:00 Test Item Value Reference Range Interpretation Comments eosinophils as percent of blood 1 % leukocytes (test code = 713-8) [facility] Healthmonocytes as percent of blood xitmkyvdcx9307-11-82 12:17:00 Test Item Value Reference Range Interpretation Comments monocytes as percent of blood 7 % leukocytes (test code = 5905-5) [facility] Pointlymphocytes as percent of blood hzbtscyrgt0893-19-61 12:17:00 Test Item Value Reference Range Interpretation Comments lymphocytes as percent of blood 29 % leukocytes (test code = 736-9) [facility] Pointneutrophils as percent of blood dgyclmixzz4137-08-76 12:17:00 Test Item Value Reference Range Interpretation Comments neutrophils as percent of blood 63 % leukocytes (test code = 770-8) [facility] Pointplatelet vtxfo3412-17-50 12:17:00 Test Item Value Reference Range Interpretation Comments platelet count (test code = 236 X10E3/UL 150-450 777-3) [facility] Pointred blood cell distribution jvesr3655-93-75 12:17:00 Test Item Value Reference Range Interpretation Comments red blood cell distribution width 14.3 % 12.3-15.4 (test code = 788-0) [facility] corpuscular hemoglobin concentration, [id number] 12:17:00 Test Item Value Reference Range Interpretation Comments mean corpuscular hemoglobin 34.5 G/DL 31.5-35.7 concentration, RBC (test code = 786-4) [facility] corpuscular hemoglobin, [id number] 12:17:00 Test Item Value Reference Range Interpretation Comments mean corpuscular hemoglobin, RBC 28.8 pg 26.6-33.0 (test code = 785-6) [facility] corpuscular volume, [id number] 12:17:00 Test Item Value Reference Range Interpretation Comments mean corpuscular volume, RBC (test code 84 fL 79-97 = 787-2) [facility] Pointhematocrit, [id number] 12:17:00 Test Item Value Reference Range Interpretation Comments hematocrit, blood (test code = 4544-3) 42.0 % 37.5-51.0 [facility] Pointhemoglobin, dqzlq8552-68-62 12:17:00 Test Item Value Reference Range Interpretation Comments hemoglobin, blood (test code = 14.5 g/dL 13.0-17.7 718-7) [facility] Pointerythrocyte (RBC) [id number] 12:17:00 Test Item Value Reference Range Interpretation Comments erythrocyte (RBC) count (test 5.03 X10E6/UL 4.14-5.80 code = 789-8) [facility] Pointleukocyte count, [id number] 12:17:00 Test Item Value Reference Range Interpretation Comments leukocyte count, blood (test 5.3 X10E3/UL 3.4-10.8 code = 6690-2) [facility] PointHIV-1RNA, serum, by PCR, pineiagaifvy3901-30-10 12:17:00 Test Item Value Reference Range Interpretation Comments HIV-1RNA, serum, by PCR, 68795 /mL quantitative (test code = 37606) [facility] PointCD4/CD8 [id number] 12:17:00 Test Item Value Reference Range Interpretation Comments CD4/CD8 ratio (test code 0.41 (unknown unit) 0.92-3.72 L = 04745) [facility] PointT-suppressor cells (CD8) as percent of blood lymphocytes 2019-02-19 12:17:00 Test Item Value Reference Range Interpretation Comments T-suppressor cells (CD8) as percent of 54.0 % 12.0-35.5 H blood lymphocytes (test code = 3517) [facility] Pointabsolute [id number] 12:17:00 Test Item Value Reference Range Interpretation Comments absolute CD8 (test code = 810 (unknown unit) 982-896 96098) [facility] PointLACTIC ACID [id number] 03:04:00 Test Item Value Reference Range Interpretation Comments LACTIC ACID POC 0.8 MMOL/L 0.90-1.70 L 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 by 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 HISTORY: Left axillary pain and swelling. Concern for abscess. A real-time ultrasound of the soft tissues of the left axilla was performedand reveals the presence of multiple axillary lymph nodes. The largest lymph node measures 3.7 x 1.4 x 2.8 cm and demonstrates generalized cortical thickening. A central fatty hilum is maintained. No soft tissue fluid collections are identified in the left axilla to suggest abscess. IMPRESSION: 1. Left axillary adenopathy. No sonographic evidence of a left axillary soft tissue abscess. SL: 131 at 0209 Reported and signed by: Pio Boyd M.D. CC: Karen Berg NP Technologist: Ignacia Srinivasan RDMS(Naun) Trngab Date/Time: 11/24/2018 (020) t.DMM Orig Print D/T: S: 11/24/2018 (021) Probe: PAGE 1 Signed Report- XR CHEST 2 [id number] 01:13:00 FAX: Karen Berg NP Deputy: St: REG Name: CROW VALENZUELA [facility] : 1995 Age/S: 23/M [address] [place] [address] Unit#: [id number] Loc: [place] [address] Phys: Karen Berg NP Acct: [id number] Dis Date: Status: REG ER PHONE #: [phone] Exam Date: 11/24/2018 005 FAX #: [phone] Reason: swollen painful lump to L axilla, hx HIV EXAMS: CPT CODE: [id number] XR CHEST 2 V 99220 Chest x-ray 2 view History: Swollen. Painful lump to left axilla. History of HIV. Comparison: Chest x-ray 04/29/2018 Findings Mediastinum: The cardiomediastinal contours are unremarkable. Lungs and pleural spaces: There is no focal consolidation, pneumothorax or pleural effusion. The pulmonary vascularity is normal. Impression:No radiographic evidence of an acute cardiopulmonary process. at 0113 Reported and signed by: Terrie Martinez M.D. CC: Karen Berg NP Technologist: JACKIE Caraballo) Trnscrd Date/Time/By: 11/24/2018 (0113) : By: [email or web address] Orig Print D/T: S: 11/24/2018 (0116) PAGE 1 Signed ReportBASIC METABOLIC [id number] 01:12:00 Test Item Value Reference Range Interpretation Comments SODIUM (test code = NA) 138 mEq/L 134-147 N POTASSIUM (test code = 3.3 mEq/L 3.4-5.0 L K) CHLORIDE (test code = 105 mEq/L 100-108 N CL) CARBON DIOXIDE (test 24 mEq/L 21-33 N code = CO2) ANION GAP (test code = 12 0-20 N GAP) GLUCOSE (test code = 108 mg/dL 70-110 N GLU) BLOOD UREA NITROGEN 10 mg/dL 7-18 N (test code = BUN) GLOMERULAR FILTRATION 106.5 110-120 L Units of measure = RATE (test code = GFR) ml/mi n/1.73 m2 CREATININE (test code = 0.9 mg/dL 0.6-1.3 N CREAT) CALCIUM (test code = 9.3 mg/dL 8.0-10.5 N CA) CBC W/AUTO [id number] 01:09:00 Test Item Value Reference Range Interpretation Comments WHITE BLOOD CELL (test code = 13.37 x10 3/uL 4.5-11.0 H WBC) RED BLOOD CELL (test code = 5.49 x10 6/uL 4.00-5.60 N RBC) HEMOGLOBIN (test code = HGB) 15.6 g/dL 12.5-16.9 N HEMATOCRIT (test code = HCT) 45.1 % 37.5-50.7 N MEAN CELL VOLUME (test code = 82.1 fL 81.0-99.0 N MCV) MEAN CELL HGB (test code = 28.4 pg 27.0-33.0 N MCH) MEAN CELL HGB CONCETRATION 34.6 g/dL 33.0-37.0 N (test code = MCHC) RED CELL DISTRIBUTION WIDTH CV 12.6 % 11.5-14.5 N (test code = RDW) RED CELL DISTRIBUTION WIDTH SD 38.0 fL 37.0-54.0 N (test code = RDW-SD) PLATELET COUNT (test code = 244 x10 3/uL 150-400 N PLT) MEAN PLATELET VOLUME (test 9.0 fL 7.0-9.0 N code = MPV) NEUTROPHIL % (test code = NT%) 76.6 % 56.0-77.0 N IMMATURE GRANULOCYTE % (test 0.4 % 0.0-2.0 N code = IG%) LYMPHOCYTE % (test code = LY%) 14.6 % 14.0-32.0 N MONOCYTE % (test code = MO%) 7.5 % 4.8-9.0 N EOSINOPHIL % (test code = EO%) 0.7 % 0.3-3.7 N BASOPHIL % (test code = BA%) 0.2 % 0.0-2.0 N NUCLEATED RBC % (test code = 0.0 % 0-0 N NRBC%) NEUTROPHIL # (test code = NT#) 10.24 x10 3/uL 2.0-7.6 H IMMATURE GRANULOCYTE # (test 0.06 x10 3/uL 0.00-0.03 H code = IG#) LYMPHOCYTE # (test code = LY#) 1.95 x10 3/uL 1.0-3.8 N MONOCYTE # (test code = MO#) 1.00 x10 3/uL 0.1-0.8 H EOSINOPHIL # (test code = EO#) 0.09 x10 3/uL 0.0-0.2 N BASOPHIL # (test code = BA#) 0.03 x10 3/uL 0.0-0.2 N NUCLEATED RBC # (test code = 0.00 x10 3/uL 0.0-0.1 N NRBC#) MANUAL DIFF REQUIRED (test NO code = MDIFF) LACTIC ACID [id number] 00:51:00 Test Item Value Reference Range Interpretation Comments LACTIC ACID POC 3.2 MMOL/L 0.90-1.70 H Performed by certified (test code = LACTP) 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 [facility] T-helper cells (CD4) as percent of blood yscpxqtdowz9735-04-96 09:53:00 Test Item Value Reference Range Interpretation Comments T-helper cells (CD4) as percent of 25.9 % 30.8-58.5 L blood lymphocytes (test code = 8123-2) [facility] cells (CD4) [id number] 09:53:00 Test Item Value Reference Range Interpretation Comments T-helper cells (CD4) count (test code 389 /UL 359-1519 = 90228-3) [facility] Point[facility] aminotransferase (SGPT), [id number] 09:53:00 Test Item Value Reference Range Interpretation Comments alanine aminotransferase (SGPT), serum 19 1/L 0-44 (test code = 1742-6) [facility] Pointaspartate aminotransferase (SGOT), [id number] 09:53:00 Test Item Value Reference Range Interpretation Comments aspartate aminotransferase (SGOT), 19 1/L 0-40 serum (test code = 1920-8) [facility] Pointalkaline phosphatase, [id number] 09:53:00 Test Item Value Reference Range Interpretation Comments alkaline phosphatase, serum (test code 83 1/L 39-117 = 1783-0) [facility]bilirubin, serum, [id number] 09:53:00 Test Item Value Reference Range Interpretation Comments bilirubin, serum, total (test code <0.2 mg/dL 0.0-1.2 = 1975-2) [facility] Pointalbumin/globulin ratio, [id number] 09:53:00 Test Item Value Reference Range Interpretation Comments albumin/globulin ratio, 1.9 (unknown unit) 1.2-2.2 serum (test code = 1759-0) [facility] Healthglobulin, [id number] 09:53:00 Test Item Value Reference Range Interpretation Comments globulin, serum (test code 2.5 (unknown unit) 1.5-4.5 = 2336-6) [facility] [id number] 09:53:00 Test Item Value Reference Range Interpretation Comments albumin, serum (test code = 1751-7) 4.7 g/dL 3.5-5.5 [facility]protein, total, [id number] 09:53:00 Test Item Value Reference Range Interpretation Comments protein, total, serum (test code = 7.2 g/dL 6.0-8.5 2885-2) [facility] Pointcalcium, zwloe3650-93-53 09:53:00 Test Item Value Reference Range Interpretation Comments calcium, serum (test code = 10.0 mg/dL 8.7-10.2 1999-) [facility] Pointcarbon dioxide, venous [id number] 09:53:00 Test Item Value Reference Range Interpretation Comments carbon dioxide, venous blood (test 21 mmol/L -29 code = 2026-1) [facility] Pointchloride, qukvw2583-44-27 09:53:00 Test Item Value Reference Range Interpretation Comments chloride, serum (test code = 103 mmol/L 96-106 2074-0) [facility] Pointpotassium, [id number] 09:53:00 Test Item Value Reference Range Interpretation Comments potassium, serum (test code = 4.8 mmol/L 3.5-5.2 3-3) [facility] Pointsodium, [id number] 09:53:00 Test Item Value Reference Range Interpretation Comments sodium, serum (test code = 2951-2) 140 mmol/L 134-144 [facility] Pointurea nitrogen/creatinine ratio, [id number] 09:53:00 Test Item Value Reference Range Interpretation Comments urea nitrogen/creatinine 18 (unknown unit) 9-20 ratio, serum (test code = 3097-3) [facility] Ixesbsho3389-82-94 09:53:00 Test Item Value Reference Range Interpretation Comments eGFR if 146 mL/min/{1.73 m2} >59 (test code = 21392-2) [facility] PointEstimated Glomerular Filtration Rate (calc)2018-10-03 09:53:00 Test Item Value Reference Range Interpretation Comments Estimated Glomerular 126 mL/min/{1.73 m2} >59 Filtration Rate (calc) (test code = 65341-0) [facility] Pointcreatinine, [id number] 09:53:00 Test Item Value Reference Range Interpretation Comments creatinine, serum (test code = 0.82 mg/dL 0.76-1.27 0-0) [facility] Pointurea nitrogen, [id number] 09:53:00 Test Item Value Reference Range Interpretation Comments urea nitrogen, blood (test code = 15 mg/dL 6-20 3094-0) [facility] Pointblood glucose, liyhyo5030-85-66 09:53:00 Test Item Value Reference Range Interpretation Comments blood glucose, random (test code = 91 mg/dL 65-99 2339-0) [facility] Pointimmature granulocytes, percentage of total cells, blood 2018-10-03 09:53:00 Test Item Value Reference Range Interpretation Comments immature granulocytes, percentage of 0 % total cells, blood (test code = 18447-7) [facility] Pointbasophil count, gjeoiklj7681-54-56 09:53:00 Test Item Value Reference Range Interpretation Comments basophil count, absolute (test 0.0 x10E3/uL 0.0-0.2 code = 57884-3) [facility] PointEosinophil Absolute [id number] 09:53:00 Test Item Value Reference Range Interpretation Comments Eosinophil Absolute Count (test 0.1 X10E3/UL 0.0-0.4 code = 30821-3) [facility] Pointmonocyte count, blood, hojcfnpqy3876-95-46 09:53:00 Test Item Value Reference Range Interpretation Comments monocyte count, blood, automated 0.4 X10E3/UL 0.1-0.9 (test code = 742-7) [facility] Pointlymphocyte count, blood, hunfbdkdl4218-37-94 09:53:00 Test Item Value Reference Range Interpretation Comments lymphocyte count, blood, 1.5 X10E3/UL 0.7-3.1 automated (test code = 731-0) [facility] PointAbsolute Npojhlbzvhn2666-60-93 09:53:00 Test Item Value Reference Range Interpretation Comments Absolute Neutrophils (test code 3.0 X10E3/UL 1.4-7.0 = 06495-2) [facility] Pointbasophils as percent of blood gbbszbjlew9175-70-26 09:53:00 Test Item Value Reference Range Interpretation Comments basophils as percent of blood 0 % leukocytes (test code = 707-0) [facility] Pointeosinophils as percent of blood xftlzmmhlq0605-07-59 09:53:00 Test Item Value Reference Range Interpretation Comments eosinophils as percent of blood 1 % leukocytes (test code = 713-8) [facility] Pointmonocytes as percent of blood dhkpffcckp0678-11-50 09:53:00 Test Item Value Reference Range Interpretation Comments monocytes as percent of blood 8 % leukocytes (test code = 5905-5) [facility] Pointlymphocytes as percent of blood shkhmheuqp7118-83-05 09:53:00 Test Item Value Reference Range Interpretation Comments lymphocytes as percent of blood 30 % leukocytes (test code = 736-9) [facility] Pointneutrophils as percent of blood nqykdizkll5166-42-38 09:53:00 Test Item Value Reference Range Interpretation Comments neutrophils as percent of blood 61 % leukocytes (test code = 770-8) [facility] Pointplatelet [id number] 09:53:00 Test Item Value Reference Range Interpretation Comments platelet count (test code = 243 X10E3/UL 150-379 777-3) [facility] Pointred blood cell distribution cgqiy3811-89-90 09:53:00 Test Item Value Reference Range Interpretation Comments red blood cell distribution width 14.6 % 12.3-15.4 (test code = 788-0) [facility] corpuscular hemoglobin concentration, [id number] 09:53:00 Test Item Value Reference Range Interpretation Comments mean corpuscular hemoglobin 34.2 G/DL 31.5-35.7 concentration, RBC (test code = 786-4) [facility] corpuscular hemoglobin, [id number] 09:53:00 Test Item Value Reference Range Interpretation Comments mean corpuscular hemoglobin, RBC 29.2 pg 26.6-33.0 (test code = 785-6) [facility] corpuscular volume, [id number] 09:53:00 Test Item Value Reference Range Interpretation Comments mean corpuscular volume, RBC (test code 85 fL 79-97 = 787-2) [facility] Pointhematocrit, qadam4824-98-26 09:53:00 Test Item Value Reference Range Interpretation Comments hematocrit, blood (test code = 4544-3) 45.6 % 37.5-51.0 [facility] Pointhemoglobin, ylbwi5740-26-13 09:53:00 Test Item Value Reference Range Interpretation Comments hemoglobin, blood (test code = 15.6 g/dL 13.0-17.7 718-7) [facility] Pointerythrocyte (RBC) [id number] 09:53:00 Test Item Value Reference Range Interpretation Comments erythrocyte (RBC) count (test 5.35 X10E6/UL 4.14-5.80 code = 789-8) [facility] Pointleukocyte count, slqwk2612-46-06 09:53:00 Test Item Value Reference Range Interpretation Comments leukocyte count, blood (test 5.0 X10E3/UL 3.4-10.8 code = 6690-2) [facility] PointHIV-1RNA, serum, by PCR, yxayuniwpwwi4356-19-92 09:53:00 Test Item Value Reference Range Interpretation Comments HIV-1RNA, serum, by PCR, 5490 /mL quantitative (test code = 47929) [facility] PointCD4/CD8 wzhye4381-65-77 09:53:00 Test Item Value Reference Range Interpretation Comments CD4/CD8 ratio (test code 0.48 (unknown unit) 0.92-3.72 L = 36308) [facility] PointT-suppressor cells (CD8) as percent of blood lymphocytes 2018-10-03 09:53:00 Test Item Value Reference Range Interpretation Comments T-suppressor cells (CD8) as percent of 53.5 % 12.0-35.5 H blood lymphocytes (test code = 3517) [facility] Pointabsolute [id number] 09:53:00 Test Item Value Reference Range Interpretation Comments absolute CD8 (test code = 803 (unknown unit) 416-419 58050) [facility] Pointphencyclidine screen, girhc9468-07-89 16:52:00 Test Item Value Reference Range Interpretation Comments phencyclidine screen, urine (test Negative Cutoff=25 code = 3936-2) [facility] Pointopiates, urine, fuuoueenvybwqnhi6006-29-64 16:52:00 Test Item Value Reference Range Interpretation Comments opiates, urine, semiquantitative Negative Rgsbsg=786 (test code = 3879-4) [facility] Pointcannabinoid screen, [id number] 16:52:00 Test Item Value Reference Range Interpretation Comments cannabinoid screen, urine See Final Results Cutoff=50 (test code = 3426-4) [facility] Pointbenzodiazepine screen, llyts6749-12-78 16:52:00 Test Item Value Reference Range Interpretation Comments benzodiazepine screen, urine (test Negative Sdpvxx=645 code = 3390-2) [facility] Healthamphetamine screen, mtlai3549-34-26 16:52:00 Test Item Value Reference Range Interpretation Comments amphetamine screen, urine (test code Negative Wfsvtu=2686 = 3349-8) [facility] Healthcocaine, puays3075-62-34 16:52:00 Test Item Value Reference Range Interpretation Comments cocaine, urine (test code = 3292) Negative Megbhq=716 [facility] Pointbarbiturates screen, ysyde3506-16-29 16:52:00 Test Item Value Reference Range Interpretation Comments barbiturates screen, urine (test Negative Yucvnd=487 code = 2460) [facility] PointLDL cholesterol, btymy7446-52-97 16:31:00 Test Item Value Reference Range Interpretation Comments LDL cholesterol, serum (test code = 118 mg/dL 0-99 H 9-1) [facility] PointHDL cholesterol, rlpjg7195-07-37 16:31:00 Test Item Value Reference Range Interpretation Comments HDL cholesterol, serum (test code = 46 mg/dL >39 5-9) [facility] Pointtriglyceride, serum, bhhmfft3182-29-54 16:31:00 Test Item Value Reference Range Interpretation Comments triglyceride, serum, fasting (test 187 mg/dL 0-149 H code = 2571-8) [facility] Pointcholesterol, wffan7750-98-71 16:31:00 Test Item Value Reference Range Interpretation Comments cholesterol, serum (test code = 201 mg/dL 100-199 H 3-3) [facility] PointT-helper cells (CD4) as percent of blood lymphocytes 2018-07-19 16:31:00 Test Item Value Reference Range Interpretation Comments T-helper cells (CD4) as percent of 19.2 % 30.8-58.5 L blood lymphocytes (test code = 8123-2) [facility] PointT-helper cells (CD4) niwca4935-21-14 16:31:00 Test Item Value Reference Range Interpretation Comments T-helper cells (CD4) count (test code 518 /UL 359-1519 = 54251-6) [facility] Pointvery low density fzuljapmpkhm1507-49-01 16:31:00 Test Item Value Reference Range Interpretation Comments very low density lipoproteins (test 37 mg/dL 5-40 code = 2091-7) [facility] Healthalanine aminotransferase (SGPT), zkajt6219-70-56 16:31:00 Test Item Value Reference Range Interpretation Comments alanine aminotransferase (SGPT), serum 25 1/L 0-44 (test code = 1742-6) [facility] Pointaspartate aminotransferase (SGOT), psbwg9008-06-20 16:31:00 Test Item Value Reference Range Interpretation Comments aspartate aminotransferase (SGOT), 24 1/L 0-40 serum (test code = 1920-8) [facility] Pointalkaline phosphatase, ookjp2272-81-35 16:31:00 Test Item Value Reference Range Interpretation Comments alkaline phosphatase, serum (test code 87 1/L 39-117 = 1783-0) [facility] Pointbilirubin, serum, [id number] 16:31:00 Test Item Value Reference Range Interpretation Comments bilirubin, serum, total (test code 0.4 mg/dL 0.0-1.2 = 1975-2) [facility] Pointalbumin/globulin ratio, [id number] 16:31:00 Test Item Value Reference Range Interpretation Comments albumin/globulin ratio, 1.5 (unknown unit) 1.2-2.2 serum (test code = 1759-0) [facility] Healthglobulin, [id number] 16:31:00 Test Item Value Reference Range Interpretation Comments globulin, serum (test code 3.5 (unknown unit) 1.5-4.5 = 2336-6) [facility] Healthalbumin, khisw7197-76-21 16:31:00 Test Item Value Reference Range Interpretation Comments albumin, serum (test code = 1751-7) 5.3 g/dL 3.5-5.5 [facility] Pointprotein, total, [id number] 16:31:00 Test Item Value Reference Range Interpretation Comments protein, total, serum (test code = 8.8 g/dL 6.0-8.5 H 2885-2) [facility] Pointcalcium, fhqot2966-12-11 16:31:00 Test Item Value Reference Range Interpretation Comments calcium, serum (test code = 10.6 mg/dL 8.7-10.2 H 2000-8) [facility] Pointcarbon dioxide, venous ishkk6441-60-19 16:31:00 Test Item Value Reference Range Interpretation Comments carbon dioxide, venous blood (test 22 mmol/L code = 7-1) [facility] Pointchloride, gunbt1772-84-82 16:31:00 Test Item Value Reference Range Interpretation Comments chloride, serum (test code = 99 mmol/L 96-106 5-0) [facility] Pointpotassium, fpiti2664-86-56 16:31:00 Test Item Value Reference Range Interpretation Comments potassium, serum (test code = 4.4 mmol/L 3.5-5.2 2823-3) [facility] Pointsodium, zpbax2341-33-93 16:31:00 Test Item Value Reference Range Interpretation Comments sodium, serum (test code = 2951-2) 140 mmol/L 134-144 [facility] Pointurea nitrogen/creatinine ratio, yumni1065-37-03 16:31:00 Test Item Value Reference Range Interpretation Comments urea nitrogen/creatinine 13 (unknown unit) 9-20 ratio, serum (test code = 3097-3) [facility] PointeGFR if Mnajommz9151-98-08 16:31:00 Test Item Value Reference Range Interpretation Comments eGFR if 144 mL/min/{1.73 m2} >59 (test code = 77075-2) [facility] PointEstimated Glomerular Filtration Rate (calc)2018-07-19 16:31:00 Test Item Value Reference Range Interpretation Comments Estimated Glomerular 125 mL/min/{1.73 m2} >59 Filtration Rate (calc) (test code = 60198-4) [facility] Pointcreatinine, khzcn0321-16-19 16:31:00 Test Item Value Reference Range Interpretation Comments creatinine, serum (test code = 0.85 mg/dL 0.76-1.27 2160-0) [facility] Pointurea nitrogen, ydbhw1135-94-95 16:31:00 Test Item Value Reference Range Interpretation Comments urea nitrogen, blood (test code = 11 mg/dL 6-20 3094-0) [facility] Pointblood glucose, achvkw0812-26-31 16:31:00 Test Item Value Reference Range Interpretation Comments blood glucose, random (test code = 86 mg/dL 65-99 2339-0) [facility] Pointimmature granulocytes, percentage of total cells, blood 2018-07-19 16:31:00 Test Item Value Reference Range Interpretation Comments immature granulocytes, percentage of 0 % total cells, blood (test code = 20056-9) [facility] Healthbasophil count, bfuyozyu2413-34-62 16:31:00 Test Item Value Reference Range Interpretation Comments basophil count, absolute (test 0.0 x10E3/uL 0.0-0.2 code = 04073-5) [facility] HealthEosinophil Absolute Iecnr5473-31-96 16:31:00 Test Item Value Reference Range Interpretation Comments Eosinophil Absolute Count (test 0.1 X10E3/UL 0.0-0.4 code = 18789-0) [facility] Pointmonocyte count, blood, ayohzrgpi1405-41-56 16:31:00 Test Item Value Reference Range Interpretation Comments monocyte count, blood, automated 0.6 X10E3/UL 0.1-0.9 (test code = 742-7) [facility] Pointlymphocyte count, blood, osejhxoqe1593-01-89 16:31:00 Test Item Value Reference Range Interpretation Comments lymphocyte count, blood, 2.7 X10E3/UL 0.7-3.1 automated (test code = 731-0) [facility] PointAbsolute Mracjfwoczc9094-72-86 16:31:00 Test Item Value Reference Range Interpretation Comments Absolute Neutrophils (test code 6.6 X10E3/UL 1.4-7.0 = 54294-0) [facility] Pointbasophils as percent of blood ocgdagakkx0944-20-25 16:31:00 Test Item Value Reference Range Interpretation Comments basophils as percent of blood 0 % leukocytes (test code = 707-0) [facility] Healtheosinophils as percent of blood fknkamkqkg2522-38-97 16:31:00 Test Item Value Reference Range Interpretation Comments eosinophils as percent of blood 1 % leukocytes (test code = 713-8) [facility] Healthmonocytes as percent of blood tsmsmysmje5887-94-48 16:31:00 Test Item Value Reference Range Interpretation Comments monocytes as percent of blood 6 % leukocytes (test code = 5905-5) [facility] Pointlymphocytes as percent of blood lwbmsowvcp8697-55-73 16:31:00 Test Item Value Reference Range Interpretation Comments lymphocytes as percent of blood 27 % leukocytes (test code = 736-9) [facility] Pointneutrophils as percent of blood qrzsltopmi1686-95-91 16:31:00 Test Item Value Reference Range Interpretation Comments neutrophils as percent of blood 66 % leukocytes (test code = 770-8) [facility] Pointplatelet fhpms8318-87-05 16:31:00 Test Item Value Reference Range Interpretation Comments platelet count (test code = 229 X10E3/UL 150-379 777-3) [facility] Pointred blood cell distribution tvisj0713-45-13 16:31:00 Test Item Value Reference Range Interpretation Comments red blood cell distribution width 17.1 % 12.3-15.4 H (test code = 788-0) [facility] corpuscular hemoglobin concentration, [id number] 16:31:00 Test Item Value Reference Range Interpretation Comments mean corpuscular hemoglobin 33.6 G/DL 31.5-35.7 concentration, RBC (test code = 786-4) [facility] corpuscular hemoglobin, [id number] 16:31:00 Test Item Value Reference Range Interpretation Comments mean corpuscular hemoglobin, RBC 27.8 pg 26.6-33.0 (test code = 785-6) [facility] corpuscular volume, [id number] 16:31:00 Test Item Value Reference Range Interpretation Comments mean corpuscular volume, RBC (test code 83 fL 79-97 = 787-2) [facility] Pointhematocrit, [id number] 16:31:00 Test Item Value Reference Range Interpretation Comments hematocrit, blood (test code = 4544-3) 47.6 % 37.5-51.0 [facility] Pointhemoglobin, [id number] 16:31:00 Test Item Value Reference Range Interpretation Comments hemoglobin, blood (test code = 16.0 g/dL 13.0-17.7 718-7) [facility] Pointerythrocyte (RBC) [id number] 16:31:00 Test Item Value Reference Range Interpretation Comments erythrocyte (RBC) count (test 5.75 X10E6/UL 4.14-5.80 code = 789-8) [facility] Pointleukocyte count, xttkp0385-71-40 16:31:00 Test Item Value Reference Range Interpretation Comments leukocyte count, blood (test 10.0 X10E3/UL 3.4-10.8 code = 6690-2) [facility] PointHIV-1RNA, serum, by PCR, lvtedptjcctk4520-33-98 16:31:00 Test Item Value Reference Range Interpretation Comments HIV-1RNA, serum, by PCR, quantitative 50 /mL (test code = 10086) [facility] PointCD4/CD8 [id number] 16:31:00 Test Item Value Reference Range Interpretation Comments CD4/CD8 ratio (test code 0.33 (unknown unit) 0.92-3.72 L = 08484) [facility] PointT-suppressor cells (CD8) as percent of blood lymphocytes 2018-07-19 16:31:00 Test Item Value Reference Range Interpretation Comments T-suppressor cells (CD8) as percent of 59.0 % 12.0-35.5 H blood lymphocytes (test code = 3517) [facility] Pointabsolute [id number] 16:31:00 Test Item Value Reference Range Interpretation Comments absolute CD8 (test code = 1593 (unknown unit) 109-897 H 50347) [facility] PointTreponema pallidum antibodies, by particle agglutination 2018-06-26 14:34:00 Test Item Value Reference Range Interpretation Comments Treponema pallidum antibodies, by Positive Negative A particle agglutination (test code = 81915-8) [facility] PointT-helper cells (CD4) as percent of blood lymphocytes 2018-06-26 14:34:00 Test Item Value Reference Range Interpretation Comments T-helper cells (CD4) as percent of 20.5 % 30.8-58.5 L blood lymphocytes (test code = 8123-2) [facility] PointT-helper cells (CD4) eoaxp7916-35-81 14:34:00 Test Item Value Reference Range Interpretation Comments T-helper cells (CD4) count (test code 431 /UL 359-1519 = 03210-5) [facility] Pointrapid plasma reagin antibody, wbzwf8138-08-88 14:34:00 Test Item Value Reference Range Interpretation Comments rapid plasma reagin 1:8 See_Comment H [Automa riccardo message] The antibody, serum (test system which generated code = 5291-0) this result t ransmitted reference range : NonRea<1:1. The reference range was not u sed to interpret this result as normal/abnormal . [facility] Pointalanine aminotransferase (SGPT), eumrz8191-00-37 14:34:00 Test Item Value Reference Range Interpretation Comments alanine aminotransferase (SGPT), serum 12 1/L 0-44 (test code = 1742-6) [facility] Pointaspartate aminotransferase (SGOT), ievqs8680-09-06 14:34:00 Test Item Value Reference Range Interpretation Comments aspartate aminotransferase (SGOT), 14 1/L 0-40 serum (test code = 1920-8) [facility] Pointalkaline phosphatase, [id number] 14:34:00 Test Item Value Reference Range Interpretation Comments alkaline phosphatase, serum (test code 67 1/L 39-117 = 1783-0) [facility] Pointbilirubin, serum, [id number] 14:34:00 Test Item Value Reference Range Interpretation Comments bilirubin, serum, total (test code 0.3 mg/dL 0.0-1.2 = 1975-2) [facility] Pointalbumin/globulin ratio, sklaf1094-60-83 14:34:00 Test Item Value Reference Range Interpretation Comments albumin/globulin ratio, 1.6 (unknown unit) 1.2-2.2 serum (test code = 1759-0) [facility] Pointglobulin, [id number] 14:34:00 Test Item Value Reference Range Interpretation Comments globulin, serum (test code 2.8 (unknown unit) 1.5-4.5 = 2336-6) [facility] Healthalbumin, [id number] 14:34:00 Test Item Value Reference Range Interpretation Comments albumin, serum (test code = 1751-7) 4.5 g/dL 3.5-5.5 [facility] Pointprotein, total, [id number] 14:34:00 Test Item Value Reference Range Interpretation Comments protein, total, serum (test code = 7.3 g/dL 6.0-8.5 2885-2) [facility] Pointcalcium, [id number] 14:34:00 Test Item Value Reference Range Interpretation Comments calcium, serum (test code = 10.0 mg/dL 8.7-10.2 1999-) [facility] Pointcarbon dioxide, venous [id number] 14:34:00 Test Item Value Reference Range Interpretation Comments carbon dioxide, venous blood (test 26 mmol/L code = 7-1) [facility] Pointchloride, iendl3390-78-20 14:34:00 Test Item Value Reference Range Interpretation Comments chloride, serum (test code = 104 mmol/L 96-106 5-0) [facility] Pointpotassium, [id number] 14:34:00 Test Item Value Reference Range Interpretation Comments potassium, serum (test code = 4.6 mmol/L 3.5-5.2 3-3) [facility] Pointsodium, vmcvj8539-77-99 14:34:00 Test Item Value Reference Range Interpretation Comments sodium, serum (test code = 2951-2) 143 mmol/L 134-144 [facility] Pointurea nitrogen/creatinine ratio, [id number] 14:34:00 Test Item Value Reference Range Interpretation Comments urea nitrogen/creatinine 13 (unknown unit) 9-20 ratio, serum (test code = 3097-3) [facility] HealtheGFR if Yzmvzguw3380-47-34 14:34:00 Test Item Value Reference Range Interpretation Comments eGFR if 150 mL/min/{1.73 m2} >59 (test code = 31263-0) [facility] PointEstimated Glomerular Filtration Rate (calc)2018-06-26 14:34:00 Test Item Value Reference Range Interpretation Comments Estimated Glomerular 130 mL/min/{1.73 m2} >59 Filtration Rate (calc) (test code = 35285-3) [facility] Pointcreatinine, [id number] 14:34:00 Test Item Value Reference Range Interpretation Comments creatinine, serum (test code = 0.77 mg/dL 0.76-1.27 0-0) [facility] Pointurea nitrogen, oavzy0802-06-24 14:34:00 Test Item Value Reference Range Interpretation Comments urea nitrogen, blood (test code = 10 mg/dL 6-20 3094-0) [facility] Pointblood glucose, [id number] 14:34:00 Test Item Value Reference Range Interpretation Comments blood glucose, random (test code = 91 mg/dL 65-99 2339-0) [facility] Pointimmature granulocytes, percentage of total cells, blood 2018-06-26 14:34:00 Test Item Value Reference Range Interpretation Comments immature granulocytes, percentage of 0 % total cells, blood (test code = 12201-9) [facility] Healthbasophil count, jfkreamr2541-30-85 14:34:00 Test Item Value Reference Range Interpretation Comments basophil count, absolute (test 0.0 x10E3/uL 0.0-0.2 code = 86865-6) [facility] HealthEosinophil Absolute Mhpec4262-22-11 14:34:00 Test Item Value Reference Range Interpretation Comments Eosinophil Absolute Count (test 0.1 X10E3/UL 0.0-0.4 code = 17108-3) [facility], blood, yogvxjxdg5075-16-53 14:34:00 Test Item Value Reference Range Interpretation Comments monocyte count, blood, automated 0.4 X10E3/UL 0.1-0.9 (test code = 742-7) [facility]lymph[facility] count, blood, qxkxmappo0312-92-68 14:34:00 Test Item Value Reference Range Interpretation Comments lymphocyte count, blood, 2.1 X10E3/UL 0.7-3.1 automated (test code = 731-0) [facility] HealthAbsolute Ftqugggvalw3115-25-49 14:34:00 Test Item Value Reference Range Interpretation Comments Absolute Neutrophils (test code 2.2 X10E3/UL 1.4-7.0 = 89136-4) [facility] Healthbasophils as percent of blood utwlvciywj9338-67-67 14:34:00 Test Item Value Reference Range Interpretation Comments basophils as percent of blood 0 % leukocytes (test code = 707-0) [facility] Healtheosinophils as percent of blood lrjiodlopt5511-24-74 14:34:00 Test Item Value Reference Range Interpretation Comments eosinophils as percent of blood 2 % leukocytes (test code = 713-8) [facility] Healthmonocytes as percent of blood winmzzgdmj9443-15-46 14:34:00 Test Item Value Reference Range Interpretation Comments monocytes as percent of blood 8 % leukocytes (test code = 5905-5) [facility]ocytes as percent of blood dmctdarpsb3903-22-09 14:34:00 Test Item Value Reference Range Interpretation Comments lymphocytes as percent of blood 44 % leukocytes (test code = 736-9) [facility] Pointneutrophils as percent of blood gxfnftkxhw0330-32-41 14:34:00 Test Item Value Reference Range Interpretation Comments neutrophils as percent of blood 46 % leukocytes (test code = 770-8) [facility] Pointplatelet scxec6541-69-60 14:34:00 Test Item Value Reference Range Interpretation Comments platelet count (test code = 184 X10E3/UL 150-379 777-3) [facility] Pointred blood cell distribution rlfhe5889-01-39 14:34:00 Test Item Value Reference Range Interpretation Comments red blood cell distribution width 17.4 % 12.3-15.4 H (test code = 788-0) [facility] corpuscular hemoglobin concentration, [id number] 14:34:00 Test Item Value Reference Range Interpretation Comments mean corpuscular hemoglobin 33.3 G/DL 31.5-35.7 concentration, RBC (test code = 786-4) [facility] corpuscular hemoglobin, [id number] 14:34:00 Test Item Value Reference Range Interpretation Comments mean corpuscular hemoglobin, RBC 27.2 pg 26.6-33.0 (test code = 785-6) [facility] corpuscular volume, [id number] 14:34:00 Test Item Value Reference Range Interpretation Comments mean corpuscular volume, RBC (test code 82 fL 79-97 = 787-2) [facility] Pointhematocrit, twhcb5081-05-41 14:34:00 Test Item Value Reference Range Interpretation Comments hematocrit, blood (test code = 4544-3) 41.8 % 37.5-51.0 [facility] Pointhemoglobin, [id number] 14:34:00 Test Item Value Reference Range Interpretation Comments hemoglobin, blood (test code = 13.9 g/dL 13.0-17.7 718-7) [facility] Pointerythrocyte (RBC) luzmi5747-72-87 14:34:00 Test Item Value Reference Range Interpretation Comments erythrocyte (RBC) count (test 5.11 X10E6/UL 4.14-5.80 code = 789-8) [facility] Pointleukocyte count, xmkte9300-54-58 14:34:00 Test Item Value Reference Range Interpretation Comments leukocyte count, blood (test 4.7 X10E3/UL 3.4-10.8 code = 6690-2) [facility] PointT-suppressor cells (CD8) as percent of blood lymphocytes 2018-06-26 14:34:00 Test Item Value Reference Range Interpretation Comments T-suppressor cells (CD8) as percent of 58.0 % 12.0-35.5 H blood lymphocytes (test code = 3517) [facility] Pointabsolute [id number] 14:34:00 Test Item Value Reference Range Interpretation Comments absolute CD8 (test code = 1218 (unknown unit) 109-897 H 90563) [facility] PointHIV-1RNA, serum, by PCR, oxswebbgjhnw2598-08-42 14:34:00 Test Item Value Reference Range Interpretation Comments HIV-1RNA, serum, by PCR, 60596 /mL quantitative (test code = 78655) [facility] PointCD4/CD8 jxmtp3554-64-19 14:34:00 Test Item Value Reference Range Interpretation Comments CD4/CD8 ratio (test code 0.35 (unknown unit) 0.92-3.72 L = 54105) [facility] PointQuantiferon Gold TB blood test for tuberculosis screening 2018-05-30 12:23:00 Test Item Value Reference Range Interpretation Comments Quantiferon Gold TB blood test for Negative Negative tuberculosis screening (test code = 74794-7) [facility] PointTreponema pallidum Ab, ctuuy4089-89-75 12:11:00 Test Item Value Reference Range Interpretation Comments Treponema pallidum Ab, serum (test Reactive Non Reactive A code = 69473-9) [facility] PointT-helper cells (CD4) as percent of blood lymphocytes 2018-05-30 12:11:00 Test Item Value Reference Range Interpretation Comments T-helper cells (CD4) as percent of 17.9 % 30.8-58.5 L blood lymphocytes (test code = 8123-2) [facility] PointT-helper cells (CD4) ravty5476-69-77 12:11:00 Test Item Value Reference Range Interpretation Comments T-helper cells (CD4) count (test code 465 /UL 359-1519 = 67404-9) [facility] Healthbilirubin, serum, [id number] 12:11:00 Test Item Value Reference Range Interpretation Comments bilirubin, serum, direct (test 0.09 mg/dL 0.00-0.40 code = 1968-7) [facility] Pointrapid plasma reagin antibody, afibk4974-16-86 12:11:00 Test Item Value Reference Range Interpretation Comments rapid plasma reagin 1:32 See_Comment H [Automa riccardo message] The antibody, serum (test system which generated code = 5291-0) this result t ransmitted reference range : NonRea<1:1. The reference range was not u sed to interpret this result as normal/abnormal . [facility] Pointhepatitis C antibody, czwwc9245-20-36 12:11:00 Test Item Value Reference Range Interpretation Comments hepatitis C antibody, serum (test code <0.1 0.0-0.9 = 5199-5) [facility] Pointalanine aminotransferase (SGPT), xkupp0877-66-24 12:11:00 Test Item Value Reference Range Interpretation Comments alanine aminotransferase (SGPT), serum 15 1/L 0-44 (test code = 1742-6) [facility] Pointaspartate aminotransferase (SGOT), wlgtt8603-87-20 12:11:00 Test Item Value Reference Range Interpretation Comments aspartate aminotransferase (SGOT), 15 1/L 0-40 serum (test code = 1920-8) [facility] Pointalkaline phosphatase, xdqze8668-14-04 12:11:00 Test Item Value Reference Range Interpretation Comments alkaline phosphatase, serum (test code 85 1/L 39-117 = 1783-0) [facility] Pointbilirubin, serum, [id number] 12:11:00 Test Item Value Reference Range Interpretation Comments bilirubin, serum, total (test code 0.3 mg/dL 0.0-1.2 = 1975-2) [facility] Pointalbumin/globulin ratio, jwlmn0590-07-24 12:11:00 Test Item Value Reference Range Interpretation Comments albumin/globulin ratio, 1.3 (unknown unit) 1.2-2.2 serum (test code = 1759-0) [facility] Healthglobulin, ejbgc6537-28-86 12:11:00 Test Item Value Reference Range Interpretation Comments globulin, serum (test code 3.5 (unknown unit) 1.5-4.5 = 2336-6) [facility] Healthalbumin, wjbys0425-40-80 12:11:00 Test Item Value Reference Range Interpretation Comments albumin, serum (test code = 1751-7) 4.6 g/dL 3.5-5.5 [facility] Healthprotein, total, [id number] 12:11:00 Test Item Value Reference Range Interpretation Comments protein, total, serum (test code = 8.1 g/dL 6.0-8.5 2885-2) [facility] Pointcalcium, oeehl3621-44-98 12:11:00 Test Item Value Reference Range Interpretation Comments calcium, serum (test code = 2000-8) 9.8 mg/dL 8.7-10.2 [facility] Pointcarbon dioxide, venous [id number] 12:11:00 Test Item Value Reference Range Interpretation Comments carbon dioxide, venous blood (test 27 mmol/L 20-29 code = 7-1) [facility] Pointchloride, yruai6713-05-25 12:11:00 Test Item Value Reference Range Interpretation Comments chloride, serum (test code = 101 mmol/L 96-106 5-0) [facility] Pointpotassium, nuvpu1705-56-10 12:11:00 Test Item Value Reference Range Interpretation Comments potassium, serum (test code = 4.1 mmol/L 3.5-5.2 2823-3) [facility] Healthsodium, qlkvg9327-97-78 12:11:00 Test Item Value Reference Range Interpretation Comments sodium, serum (test code = 2951-2) 139 mmol/L 134-144 [facility] Pointurea nitrogen/creatinine ratio, dxelz7773-61-07 12:11:00 Test Item Value Reference Range Interpretation Comments urea nitrogen/creatinine 15 (unknown unit) 9-20 ratio, serum (test code = 3097-3) [facility] HealtheGFR if Itvoyhoi6387-06-05 12:11:00 Test Item Value Reference Range Interpretation Comments eGFR if 152 mL/min/{1.73 m2} >59 (test code = 39998-8) [facility] PointEstimated Glomerular Filtration Rate (calc)2018-05-30 12:11:00 Test Item Value Reference Range Interpretation Comments Estimated Glomerular 131 mL/min/{1.73 m2} >59 Filtration Rate (calc) (test code = 44507-7) [facility] Pointcreatinine, ippwg1888-42-34 12:11:00 Test Item Value Reference Range Interpretation Comments creatinine, serum (test code = 0.75 mg/dL 0.76-1.27 L 2160-0) [facility] Pointurea nitrogen, upfvl9964-29-66 12:11:00 Test Item Value Reference Range Interpretation Comments urea nitrogen, blood (test code = 11 mg/dL 6-20 3094-0) [facility] Pointblood glucose, kvuvje2693-24-33 12:11:00 Test Item Value Reference Range Interpretation Comments blood glucose, random (test code = 83 mg/dL 65-99 2339-0) [facility] Pointimmature granulocytes, percentage of total cells, blood 2018-05-30 12:11:00 Test Item Value Reference Range Interpretation Comments immature granulocytes, percentage of 0 % total cells, blood (test code = 92891-1) [facility] Pointbasophil count, zkkhgmjf2914-19-47 12:11:00 Test Item Value Reference Range Interpretation Comments basophil count, absolute (test 0.0 x10E3/uL 0.0-0.2 code = 20254-1) [facility] PointEosinophil Absolute Eglbb7826-05-63 12:11:00 Test Item Value Reference Range Interpretation Comments Eosinophil Absolute Count (test 0.1 X10E3/UL 0.0-0.4 code = 98115-7) [facility] Pointmonocyte count, blood, hhbzlzetn0239-04-77 12:11:00 Test Item Value Reference Range Interpretation Comments monocyte count, blood, automated 0.3 X10E3/UL 0.1-0.9 (test code = 742-7) [facility] Pointlymphocyte count, blood, hmuflqhiw7554-10-56 12:11:00 Test Item Value Reference Range Interpretation Comments lymphocyte count, blood, 2.6 X10E3/UL 0.7-3.1 automated (test code = 731-0) [facility] PointAbsolute Qzbfxzhldio6012-03-93 12:11:00 Test Item Value Reference Range Interpretation Comments Absolute Neutrophils (test code 2.3 X10E3/UL 1.4-7.0 = 45623-2) [facility] Pointbasophils as percent of blood vswehmnyso6892-96-34 12:11:00 Test Item Value Reference Range Interpretation Comments basophils as percent of blood 0 % leukocytes (test code = 707-0) [facility] Pointeosinophils as percent of blood rrmuokuxgs3205-29-11 12:11:00 Test Item Value Reference Range Interpretation Comments eosinophils as percent of blood 2 % leukocytes (test code = 713-8) [facility] Pointmonocytes as percent of blood lluzxnfuac9636-30-24 12:11:00 Test Item Value Reference Range Interpretation Comments monocytes as percent of blood 6 % leukocytes (test code = 5905-5) [facility] Pointlymphocytes as percent of blood ixynzqokzh3038-81-68 12:11:00 Test Item Value Reference Range Interpretation Comments lymphocytes as percent of blood 49 % leukocytes (test code = 736-9) [facility] Pointneutrophils as percent of blood crbfgzeedm1057-51-07 12:11:00 Test Item Value Reference Range Interpretation Comments neutrophils as percent of blood 43 % leukocytes (test code = 770-8) [facility] Pointplatelet lhgyc0428-15-05 12:11:00 Test Item Value Reference Range Interpretation Comments platelet count (test code = 206 X10E3/UL 150-379 777-3) [facility] Pointred blood cell distribution xwyth6868-16-90 12:11:00 Test Item Value Reference Range Interpretation Comments red blood cell distribution width 18.1 % 12.3-15.4 H (test code = 788-0) [facility] Pointmean corpuscular hemoglobin concentration, [id number] 12:11:00 Test Item Value Reference Range Interpretation Comments mean corpuscular hemoglobin 32.6 G/DL 31.5-35.7 concentration, RBC (test code = 786-4) [facility] Pointmean corpuscular hemoglobin, [id number] 12:11:00 Test Item Value Reference Range Interpretation Comments mean corpuscular hemoglobin, RBC 25.0 pg 26.6-33.0 L (test code = 785-6) [facility] Pointmean corpuscular volume, [id number] 12:11:00 Test Item Value Reference Range Interpretation Comments mean corpuscular volume, RBC (test code 77 fL 79-97 L = 787-2) [facility] Pointhematocrit, bbbkh2055-18-01 12:11:00 Test Item Value Reference Range Interpretation Comments hematocrit, blood (test code = 4544-3) 41.1 % 37.5-51.0 [facility] Pointhemoglobin, bnlwk6897-06-90 12:11:00 Test Item Value Reference Range Interpretation Comments hemoglobin, blood (test code = 13.4 g/dL 13.0-17.7 718-7) [facility] Pointerythrocyte (RBC) mpkxm5667-42-62 12:11:00 Test Item Value Reference Range Interpretation Comments erythrocyte (RBC) count (test 5.36 X10E6/UL 4.14-5.80 code = 789-8) [facility] Pointleukocyte count, diibz1355-95-62 12:11:00 Test Item Value Reference Range Interpretation Comments leukocyte count, blood (test 5.4 X10E3/UL 3.4-10.8 code = 6690-2) [facility] Pointhepatitis A antibody, qtsua4799-01-10 12:11:00 Test Item Value Reference Range Interpretation Comments hepatitis A antibody, total (test Positive Negative A code = 75) [facility] core antibody, bnvum4540-58-13 12:11:00 Test Item Value Reference Range Interpretation Comments hepatitis B core antibody, total Negative Negative (test code = 77) [facility] Pointhepatitis B surface jchcfqv0342-60-70 12:11:00 Test Item Value Reference Range Interpretation Comments hepatitis B surface antigen (test Negative Negative code = 79) [facility] PointHIV-2 antibodies, western jgct1317-67-20 12:11:00 Test Item Value Reference Range Interpretation Comments HIV-2 antibodies, western blot (test Negative Negative code = 00304) [facility] PointHIV-1/HIV-2 Ab, lowxc0165-83-95 12:11:00 Test Item Value Reference Range Interpretation Comments HIV-1/HIV-2 Ab, serum (test code = Positive Negative A 3399) [facility] PointHIV-CMIA (Chemiluminescent Microparticle Immuno Assay) 2018-05-30 12:11:00 Test Item Value Reference Range Interpretation Comments HIV-CMIA (Chemiluminescent Reactive Non Reactive A Microparticle Immuno Assay) (test code = 395184) [facility] Pointhuman leukocyte antigen [id number] 12:11:00 Test Item Value Reference Range Interpretation Comments human leukocyte antigen B57 (test Negative code = 028155) [facility] Pointtoxoplasma gondii antibody, GsJ2219-36-61 12:11:00 Test Item Value Reference Range Interpretation Comments toxoplasma gondii antibody, IgG (test <3.0 0.0-7.1 code = 2430) [facility] Pointhepatitis B surface ipogxvrp3008-05-33 12:11:00 Test Item Value Reference Range Interpretation Comments hepatitis B surface antibody (test Reactive code = 78) [facility] kgfyla8657-79-85 12:11:00 Test Item Value Reference Range Interpretation Comments HIV genotype result (test code = GENRTI 88390) [facility]RNA, serum, by PCR, arctynqwgfmh9161-31-78 12:11:00 Test Item Value Reference Range Interpretation Comments HIV-1RNA, serum, by PCR, 62742 /mL quantitative (test code = 16019) [facility] PointCD4/CD8 jwxon0478-95-59 12:11:00 Test Item Value Reference Range Interpretation Comments CD4/CD8 ratio (test code 0.27 (unknown unit) 0.92-3.72 L = 42552) [facility] PointT-suppressor cells (CD8) as percent of blood lymphocytes 2018-05-30 12:11:00 Test Item Value Reference Range Interpretation Comments T-suppressor cells (CD8) as percent of 65.5 % 12.0-35.5 H blood lymphocytes (test code = 3517) [facility] Pointabsolute [id number] 12:11:00 Test Item Value Reference Range Interpretation Comments absolute CD8 (test code = 1703 (unknown unit) 109-897 H 43422) [facility] PointNeisseria gonorrhoeae DNA kvrtw4373-65-24 12:07:00 Test Item Value Reference Range Interpretation Comments Neisseria gonorrhoeae DNA probe Negative Negative (test code = 29141-2) [facility] Pointchlamydia DNA [id number] 12:07:00 Test Item Value Reference Range Interpretation Comments chlamydia DNA probe (test code = Negative Negative 79116-0) [facility] Healthprotein, total urine jgazcd9617-38-12 12:07:00 Test Item Value Reference Range Interpretation Comments protein, total urine random (test 4.1 mg/dL code = 95293-1) [facility] Healthprotein, urine, semiquantitative (dipstick)2018-05-30 12:07:00 Test Item Value Reference Range Interpretation Comments protein, urine, semiquantitative Negative Negative/Trace (dipstick) (test code = 1753-3) [facility] Pointcreatinine, random, qxbse6947-98-05 12:07:00 Test Item Value Reference Range Interpretation Comments creatinine, random, urine (test 54.5 mg/dL code = 2161-8) [facility] Pointurinalysis, microscopic weqlbvtozpk6210-78-64 12:07:00 Test Item Value Reference Range Interpretation Comments urinalysis, microscopic examination MICNIP (test code = 17304-0) [facility] Pointnitrate, rrcwc6836-28-91 12:07:00 Test Item Value Reference Range Interpretation Comments nitrate, urine (test code = 57574-3) Negative Negative [facility] Pointurobilinogen, urine, semiquantitative (dipstick) 2018-05-30 12:07:00 Test Item Value Reference Range Interpretation Comments urobilinogen, urine, 0.2 (unknown 0.2-1.0 semiquantitative (dipstick) unit) (test code = 5818-0) [facility] Pointbilirubin, xwxje7412-76-87 12:07:00 Test Item Value Reference Range Interpretation Comments bilirubin, urine (test code = Negative Negative 5770-3) [facility] Pointketones, urine, by test frspy5170-85-76 12:07:00 Test Item Value Reference Range Interpretation Comments ketones, urine, by test strip (test Negative Negative code = 5797-6) [facility] Pointglucose, urine, uouzpowbijctssuz3708-47-82 12:07:00 Test Item Value Reference Range Interpretation Comments glucose, urine, semiquantitative Negative Negative (test code = 5792-7) [facility] Pointleukocyte esterase, urine, by yzefrvfp3674-50-11 12:07:00 Test Item Value Reference Range Interpretation Comments leukocyte esterase, urine, by Negative Negative dipstick (test code = 5799-2) [facility] Healthappearance, chnds6941-46-30 12:07:00 Test Item Value Reference Range Interpretation Comments appearance, urine (test code = 5767-9) Clear Clear [facility] Pointurine zwryg9846-82-03 12:07:00 Test Item Value Reference Range Interpretation Comments urine color (test code = 5778-6) Yellow Yellow [facility] PointpH, urine, pthhtbsukegmlbls4722-06-91 12:07:00 Test Item Value Reference Range Interpretation Comments pH, urine, semiquantitative 5.5 (unknown 5.0-7.5 (test code = 5803-2) unit) [facility] gravity, body ezjip4505-53-70 12:07:00 Test Item Value Reference Range Interpretation Comments specific gravity, body 1.013 (unknown unit) 1.005-1.030 fluid (test code = 2964-5) [facility] PointSURGICAL RBBHAENLB6624-94-61 07:50:00 RUN DATE: 05/03/18 [facility] *LIVE* PAGE 1 RUN TIME: 0750 Specimen Inquiry RUN USER: INTERFACE PATIENT: CROW VALENZUELA LOC: [facility] U #: [id number] AGE/SX: 23/M ROOM: [facility] RE04/29/18REG DR: Meena Huang MD : 97 BED: 1 DIS: STATUS: ADM IN TLOC: SPEC #: [id number] RECD: 05/01/18 STATUS: PREMA REEmma #: [id number] ANDRY: 05/01/[address]: Meena Huang MD ENTERED: 05/03/18 SP TYPE: SURG SPEC OTHR DR: No Primary or Family Physician Self Referred Cody Acuna MD, Gary B MDORDERED: GM LEVEL 4 CODES: [id number] - LYMPH NODE, NOS COPIES TO: NoPrimary or Family Physician [place] [address] [place] [address] Cody Acuna MD [address] [facility] [address] [place] [id number] Sandro Castro MD [address] [place] [id number] PROCEDURES: GM LEVEL 4 (Incomplete) TISSUES: 1. 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 Fungal and mycobacterial culture are in progress (reportto follow). Clinical correlation is necessary. CONTINUED ON NEXT PAGE RUN DATE: 05/03/18 [facility] *LIVE* PAGE 2 RUN TIME: 0750 Specimen Inquiry RUN USER: INTERFACE SPEC #: [id number] PATIENT: CROW VALENZUELA #[id number] (Continued) FINAL DIAGNOSIS Lymph node, right inguinal, TNB: Necrotizing granulomatous lymphadenitis (see microscopic examination, and comment). GROSS AND MICROSCOPIC INTRAOPERATIVE CONSULTATION: Adequate material. GROSS EXAMINATION: Received are cytology smears for intraoperative consultation. Also received is core biopsies measuring 1.2 x 0.3 x 0.1 cm. MICROSCOPIC EXAMINATION: The cytology preparations (smears) reveal necrosis, acute and chronic inflammatory cells. Sections of the core biopsies reveal fibroadipose tissue with associated necrosis, acute and chronic inflammatory cells and fibroblastic proliferation. Epithelioid histiocytes, and occasional multinucleated cells are present. No distinct granulomas are seen. Special stains (GMS and AFB) reveal no evidence of fungal or acid-fast organisms. (When special stains have been reviewed, the appropriate positive/negative controls have been reviewed and are appropriately positive/negative). POST-OP DIAGNOSIS None given PRE- OP DIAGNOSIS Lymphadenopathy REVIEWED BY: Signed SIGNATURE ON FILE Adonay Bae MD 05/03/18 0750 END OF REPORT "
[2021-05-23] MEDS ORDERED: LORazepam 2 MG/ML VIAL ONE (14:17)
--- NOTE | 2021-05-23 14:37 | RAD REPORT ---
EXAM DESCRIPTION: RAD - Chest Single View - 05/23/2021 2:18 pm CLINICAL HISTORY: PAIN COMPARISON: No comparisons FINDINGS: Lines: None. Lungs: No evidence of edema or pneumonia. Pleural: No significant pleural effusions or pneumothorax. Cardiac: The heart size is within normal limits. Bones: No acute fractures. Other: IMPRESSION: No acute cardiopulmonary disease.
[2021-05-23 14:49] LABS: Absolute Lymphocytes (CBC) 1.8 K/uL (0.7-4.9); Basophils % 0.1 % (0-1.3); Hematocrit 47.6 % (39.6-49.0); Lymphocytes % 18.9 % (15.3-44.8); MPV 7.1 fL (7.6-11.3); RBC Red Blood Cell Count 5.76 M/uL (4.33-5.43)
[2021-05-23 14:55] LABS: Protime INR 0.97
[2021-05-23 15:06] LABS: ALT/SGPT 24 U/L (12-78); AST/SGOT 13 U/L (15-37); Albumin 4.3 g/dL (3.4-5.0); Alkaline Phosphatase 90 U/L (45-117); BUN Blood Urea Nitrogen 11 mg/dL (7-18); Bicarbonate 26 mmol/L (21-32); Bilirubin Direct 0.2 mg/dL (0-0.2); Bilirubin Total 0.6 mg/dL (0.2-1.0); Glucose Level 72 mg/dL (74-106); Potassium 3.8 mmol/L (3.5-5.1); Protein, Total 8.4 g/dL (6.4-8.2); Sodium Level 140 mmol/L (136-145)
--- NOTE | 2021-05-23 18:47 | ER ---
Nurse's Notes [facility] Name: Dontae Valenzuela Age: 26 yrs Sex: Male : 1995 Arrival Date: 05/23/2021 Time: 14:02 Bed 6 Private MD: Diagnosis: Generalized anxiety disorder Presentation: 05/23 14:04 Chief complaint: Patient states: Chest pain began this morning, states feels like vg1 pressure mid sternal that radiates to Left arm. Also states feels weak. Pt admitted to using 'methamphetamine' yesterday. Coronavirus screen: Vaccine status: Patient reports receiving the 2nd dose of the covid vaccine. Client denies travel out of the [place] in the last 14 days. Ebola Screen: Patient negative for fever greater than or equal to 101.5 degrees Fahrenheit, and additional compatible Ebola Virus Disease symptoms. Initial Sepsis Screen: Does the patient meet any 2 criteria? RR > 20 per min. HR > 90 bpm. Does the patient have a suspected source of infection? No. Patient's initial sepsis screen is negative. Risk Assessment: Do you want to hurt yourself or someone else? Patient reports no desire to harm self or others. Onset of symptoms was May 23, 2021. 14:04 Method Of Arrival: Wheelchair vg 14:04 Acuity: SALOME 3 vg1 Triage Assessment: 14:07 General: Appears uncomfortable, Behavior is anxious. Pain: Complains of pain in vg1 mid-sternal area Pain radiates to left arm. Historical: - Allergies: 14:07 No Known Allergies; vg1 - Home Meds: 14:07 None [Active]; vg1 - PMHx: 14:07 HIV positive; vg1 - PSHx: 14:07 None; vg1 - Immunization history:: Client reports receiving the 2nd dose of the Covid vaccine. - Social history:: Smoking status: Patient reports the use of cigarette tobacco products, smokes one pack cigarettes per day. Patient uses street drugs, Methamphetamine (Meth). - Family history:: not pertinent. Screenin:25 Abuse screen: Denies threats or abuse. Nutritional screening: No deficits noted. jd3 Tuberculosis screening: No symptoms or risk factors identified. Fall Risk Ambulatory Aid- None/Bed Rest/Nurse Assist (0 pts). Gait- Normal/Bed Rest/Wheelchair (0 pts) Mental Status- Oriented to own ability (0 pts). Total Suarez Fall Scale indicates No Risk (0-24 pts). Assessment: 14:22 General: Appears uncomfortable, Behavior is anxious, restless. Pain: Complains of pain jd3 in chest Pain radiates to left arm Quality of pain is described as heavy, pressure. Neuro: Level of Consciousness is awake, alert, obeys commands, Oriented to person, place, time, situation. Cardiovascular: Heart tones S1 S2 present Capillary refill < 3 seconds Patient's skin is warm and dry. Rhythm is sinus tachycardia. Respiratory: Airway is patent Respiratory effort is even, Respiratory pattern is symmetrical, hyperventilation Breath sounds are clear bilaterally. GI: No signs and/or symptoms were reported involving the gastrointestinal system. : No signs and/or symptoms were reported regarding the genitourinary system. EENT: No signs and/or symptoms were reported regarding the EENT system. Derm: Skin is intact, Skin is dry, Skin is normal, Skin temperature is warm. Musculoskeletal: Circulation, motion, and sensation intact. Range of motion: intact in all extremities. 14:37 Reassessment: Nadeen: [phone]. [facility] 16:06 Reassessment: Patient appears in no apparent distress at this time. Patient and/or jd3 family updated on plan of care and expected duration. Pain level reassessed. Patient is alert, oriented x 3, equal unlabored respirations, skin warm/dry/pink. Patient states symptoms have improved. 17:41 Reassessment: Patient appears in no apparent distress at this time. Patient and/or jd3 family updated on plan of care and expected duration. Pain level reassessed. Patient is alert, oriented x 3, equal unlabored respirations, skin warm/dry/pink. Patient states feeling better. 18:30 Reassessment: Patient appears in no apparent distress at this time. No changes from jd3 previously documented assessment. Patient and/or family updated on plan of care and expected duration. Pain level reassessed. Patient is alert, oriented x 3, equal unlabored respirations, skin warm/dry/pink. Patient states feeling better. Vital Signs: 14:04 BP 149 / 73; Pulse 102; Resp 30; Temp 97.5; Pulse Ox 100% ; Weight 77.11 kg; Height 5 vg1 ft. 3 in. (160.02 cm); Pain 8/10; 16:06 Pulse 98; Resp 19 S; Pulse Ox 100% on R/A; jd3 17:41 BP 123 / 71; Pulse 87; Resp 16 S; Pulse Ox 99% on R/A; jd3 18:30 BP 117 / 69; Pulse 85; Resp 17 S; Pulse Ox 98% on R/A; jd3 14:04 Body Mass Index 30.11 (77.11 kg, 160.02 cm) 1 ED Course: 14:02 Patient arrived in ED. as 14:04 Osvaldo Magana, SADIE is Primary Nurse. jd3 14:06 Harjinder Ladd MD is Attending Physician. sc2 14:07 Triage completed. 1 14:07 Arm band placed on. 1 14:18 Chest Single View XRAY In Process Unspecified. EDMS 14:21 Inserted saline lock: 20 gauge in right in left antecubital area, using aseptic kv1 technique. Blood collected. 14:25 Patient has correct armband on for positive identification. Bed in low position. Call j light in reach. Side rails up X2. Adult w/ patient. playground monitor on. Pulse ox on. NIBP on. 19:00 No provider procedures requiring assistance completed. IV discontinued, intact, jd3 bleeding controlled, No redness/swelling at site. Pressure dressing applied. Administered Medications: 14:28 Drug: Ativan (LORazepam) 1 mg Route: IVP; Site: left antecubital; jd3 15:28 Follow up: Response: No adverse reaction j Outcome: 18:47 Discharge ordered by . sc2 19:00 Discharged to home ambulatory, with friend. jd3 19:00 Condition: stable 19:00 Discharge instructions given to patient, Instructed on discharge instructions, follow up and referral plans. Demonstrated understanding of instructions, follow-up care. 19:00 Patient left the ED. jd3 Signatures: Dispatcher [employer] EDMI Michelle Phan as Osvaldo Magana, SADIE RN jd3 Harjinder Ladd MD MD ma2 Garcia, Victoria, RN RN 1 Alejo Abdalla kv1 Corrections: (The following items were deleted from the chart) 14:22 14:21 Inserted saline lock: 20 gauge in right antecubital area, using aseptic kv1 technique. Blood collected. kv1
--- NOTE | 2021-05-23 18:48 | EDPHYS ---
Physician Documentation [facility] Name: Dontae Valenzuela Age: 26 yrs Sex: Male : 1995 Arrival Date: 05/23/2021 Time: 14:02 Bed 6 Private MD: ED Physician Harjinder Ladd HPI: 05/23 14:12 This 26 yrs old Male presents to ER via Wheelchair with complaints of Anxiety. ma2 14:12 Onset: The symptoms/episode began/occurred gradually, 1 day(s) ago. Associated signs ma2 and symptoms: Pertinent negatives: non-productive cough, diaphoresis, hemoptysis, loss of consciousness, nausea. Severity of symptoms: At their worst the symptoms were moderate in the emergency department the symptoms are unchanged. The patient has experienced similar episodes in the past. used meth today. Historical: - Allergies: 14:07 No Known Allergies; vg1 - Home Meds: 14:07 None [Active]; vg1 - PMHx: 14:07 HIV positive; vg1 - PSHx: 14:07 None; vg1 - Immunization history:: Client reports receiving the 2nd dose of the Covid vaccine. - Social history:: Smoking status: Patient reports the use of cigarette tobacco products, smokes one pack cigarettes per day. Patient uses street drugs, Methamphetamine (Meth). - Family history:: not pertinent. ROS: 14:12 Constitutional: Negative for fever, chills, and weight loss. ma2 14:12 All other systems are negative. Exam: 14:12 Constitutional: This is a well developed, well nourished patient who is awake, alert, ma2 and in no acute distress. Head/Face: Normocephalic, atraumatic. Neck: Trachea midline, no thyromegaly or masses palpated, and no cervical lymphadenopathy. Supple, full range of motion without nuchal rigidity, or vertebral point tenderness. No Meningismus. Chest/axilla: Normal chest wall appearance and motion. Nontender with no deformity. No lesions are appreciated. Cardiovascular: Regular rate and rhythm with a normal S1 and S2. No gallops, murmurs, or rubs. Normal PMI, no JVD. No pulse deficits. Respiratory: Lungs have equal breath sounds bilaterally, clear to auscultation and percussion. No rales, rhonchi or wheezes noted. No increased work of breathing, no retractions or nasal flaring. Abdomen/GI: Soft, non-tender, with normal bowel sounds. No distension or tympany. No guarding or rebound. No evidence of tenderness throughout. Back: No spinal tenderness. No costovertebral tenderness. Full range of motion. Skin: Warm, dry with normal turgor. Normal color with no rashes, no lesions, and no evidence of cellulitis. MS/ Extremity: Pulses equal, no cyanosis. Neurovascular intact. Full, normal range of motion. Neuro: Awake and alert, GCS 15, oriented to person, place, time, and situation. Cranial nerves II-XII grossly intact. Motor strength 5/5 in all extremities. Sensory grossly intact. Cerebellar exam normal. Normal gait. 14:12 Neuro: Orientation: is normal. ma2 14:12 Psych: Behavior/mood is anxious. Vital Signs: 14:04 BP 149 / 73; Pulse 102; Resp 30; Temp 97.5; Pulse Ox 100% ; Weight 77.11 kg; Height 5 vg1 ft. 3 in. (160.02 cm); Pain 8/10; 16:06 Pulse 98; Resp 19 S; Pulse Ox 100% on R/A; jd3 17:41 BP 123 / 71; Pulse 87; Resp 16 S; Pulse Ox 99% on R/A; jd3 18:30 BP 117 / 69; Pulse 85; Resp 17 S; Pulse Ox 98% on R/A; jd3 14:04 Body Mass Index 30.11 (77.11 kg, 160.02 cm) vg1 MDM: 14:07 Patient medically screened. ma2 18:47 Differential diagnosis: Anemia Anxiety Reaction Bronchitis reactive airway disease. ma2 Data reviewed: vital signs, nurses notes. Counseling: I had a detailed discussion with the patient and/or guardian regarding: the historical points, exam findings, and any diagnostic results supporting the discharge/admit diagnosis, the presence of at least one elevated blood pressure reading (>120/80) during this emergency department visit, the need for outpatient follow up. 05/23 14:10 Order name: Acetaminophen [facility] 05/23 14:10 Order name: Basic Metabolic Panel; Complete Time: 15:11 [facility] 05/23 14:10 Order name: CBC with Diff; Complete Time: 14:56 [facility] 05/23 14:10 Order name: ETOH Level; Complete Time: 14:56 [facility] 05/23 14:10 Order name: Hepatic Function; Complete Time: 15:11 [facility] 05/23 14:10 Order name: PT-INR; Complete Time: 16:36 d3 05/23 14:09 Order name: Chest Single View XRAY; Complete Time: 14:56 [facility] 05/23 14:10 Order name: Ptt, Activated; Complete Time: 16:36 [facility] 05/23 14:10 Order name: Salicylate; Complete Time: 15:11 d3 05/23 14:10 Order name: EKG; Complete Time: 14:10 [facility] 05/23 14:10 Order name: EKG - Nurse/Tech; Complete Time: 14:22 [facility] 05/23 14:10 Order name: Acetaminophen Level; Complete Time: 15:11 [facility] 05/23 14:10 Order name: IV Saline Lock; Complete Time: 14:21 [facility] 05/23 14:10 Order name: Labs collected and sent; Complete Time: 14:21 [facility] Administered Medications: 14:28 Drug: Ativan (LORazepam) 1 mg Route: IVP; Site: left antecubital; d3 15:28 Follow up: Response: No adverse reaction jd3 Disposition Summary: 05/23/21 18:47 Discharge Ordered Location: Home ma2 Condition: Stable ma2 Diagnosis - Generalized anxiety disorder ma2 Followup: ma2 - With: Private Physician - When: Tomorrow - Reason: If symptoms return, Continuance of care Discharge Instructions: - Discharge Summary Sheet ma2 - Methamphetamines Use Disorder ma2 - Panic Attack, [id number] ma2 Forms: - Medication Reconciliation Form ma2 - Thank You Letter ma2 - Antibiotic Education ma2 - Prescription Opioid Use ma2 Signatures: Dispatcher [employer] Osvaldo Sparks RN RN jd3 Harjinder Ladd MD MD ma2 Destini Garcia RN RN vg1
[2021-05-23 19:09] VITALS: TEMP 97.5
[2021-05-23 19:14] VITALS: BP 117/69; O2SAT 98
== END 2021-05-23 19:00 | disposition home or self-care (01) ==
LOC: ER 14:00
DX: F41.9 Anxiety disorder, unspecified (principal)
CPT/HCPCS: 36415; 71045; 80048; 80076; 80320; 80329; 85025; 85610; 85730; 93005; 96374; 99284